=== PATIENT | female | born 1935 | race Caucasian/White ===

== ENCOUNTER 2019-09-16 01:53 | Inpatient (IN) | payer MEDICARE, OTHER ==
--- NOTE | 2019-09-16 03:44 | PDOC.FPRHP ---
- History of Present Illness Chief Complaint: hypotension, lethargy History of Present Illness: 84 yo with PMH of DM, HTN, hypothyroidism transferred from [facility] presents for lethargy and decreased blood pressure. Patient is unable to give her own history due to altered mental status. Her daughter, Arielle Campbell, was contacted via phone. She reports patient was released from rehab 5 days ago (Friday) and was currently at home, with home health. She had been to rehab receiving PT/OT after she was found to have compression fx of T12 and L1 from presumably an unwitnessed fall, and was having difficulty walking. Per daughter's report, she was found to have a UTI while there and was continued on oral vancomycin after discharge, which the daughter understood was for UTI. Daughter reports her mother had been mostly coherent, AOx2 at baseline, prior to yesterday. She had become sleepy and was having difficulty waking up. They tried to feed her yogurt, and she was having difficulty swallowing (choking on her food). They checked in on her again at 6:30 PM, and she appeared "spaced out." Over the course of 30 minutes she became more sleepy, was dozing off, and not as coherent. EMS was called, and she was taken to the hospital in [place]. Daughter reports she had fever at [facility]. UA showed + LE, Bacteria 3+, WBC. She was diagnosed with sepsis 2/2 UTI. She was given 3L NS (total) and 2 g rocephin. Other noteable labs from [facility] include WBC 29, Hgb 8.1, Trop of 4.3, CK of 4.2, BNP of 1418. EKG showed sinus rhythm with LBBB with widened QRS and nonspecific ST changes. Patient was transferred to [facility], where her BP were found to be low , initially systolic in 70s-80s/40s. After her last liter of fluids (total of 3L NS between both hospitals), her most recent MAP was 66. - Allergies/Adverse Reactions Allergies Allergy/AdvReac Type Severity Reaction Status Date / Time Sulfa (Sulfonamide Allergy Verified 09/16/19 03:56 Antibiotics) - History Per records review PMHx: HTN, hypothyroidism, hx of vertigo, compression fractures in her back, glaucoma and macular degeneration; daughter reports no hx of heart failure or heart problems (was seeing a drill grinder in [place], had cardiac clearance for a surgery 2 years ago) PSHx: Appendectomy, hysterectomy, L total knee FHx: IA in father and brother, stroke in mother Social: No tobacco or alcohol use, no drug use - Review of Systems ROS unobtainable: other (per daughter) General: reports: fever/chills, weight/appetite/sleep changes, fatigue Eyes: denies: eye pain, vision changes ENT: denies: nasal congestion, rhinorrhea Respiratory: denies: cough, congestion, shortness of breath Cardiovascular: reports: edema. denies: chest pain, palpitation Gastrointestinal: reports: diarrhea (from laxative), constipation (from pain medications). denies: vomiting, GI bleeding Genitourinary: denies: dysuria, other (hematuria) Skin: reports: rashes (erythema near vaginal area). denies: itching Musculoskeletal: reports: swelling, other (walked with a cane prior to rehab, after rehab walking with a walker about 10-15 feet with PT). denies: arthritis/ arthralgias Neurological: reports: weakness. denies: seizure Psychological: denies: anxiety, depression - Vital signs BP: [102/49] HR: [82] RR: [15] Tmax: [98.8] Pox: [95]% on [3L] Wt: [77.3 kg] - Physical Exam Constitutional: other (patient is lethargic, unable to answer questions reliably. AOx0. Patient awakes to firm touch, falls quickly asleep again.) HEENT: normocephalic and atraumatic, PERRLA, EOMI, conjunctiva clear, no scleral icterus, other (MM dry) Neck: supple, no LAD, no thyromegaly Heart: RRR, normal S1/S2, no murmurs/rubs/gallops, pulses present, other (3+ edema BLE, weak radial pulses and posterior tibial pulses bilat) Lungs: CTAB, no respiratory distress, good air movement, no rales/rhonchi, no wheezing Abdomen: soft, bowel sounds present, other (mild diffuse abdominal tenderness, patient flinches on deep palpation) Musculoskeletal: normal structure, normal tone Skin: other (erythema and excoriations around pubic area, tenting on exam) Psychiatric: other (patient is unable to respond to questions reliably) FMR H&P: Results - Labs Result Diagrams: 09/16/19 04:04 09/16/19 04:04 Lab results: Lactic Acid 1.7 mmol/L (0.5-2.2) 09/16/19 02:39 - EKG Interpretation EKG: Sinus rhythm rate 81 bpm QRS 132 QT/QTc 494/573 LAD LBBB Nonspecific T wave inversions FMR H&P: A/P - Problem List (1) Severe sepsis Current Visit: Yes Status: Acute Code(s): A41.9 - SEPSIS, UNSPECIFIED ORGANISM; R65.20 - SEVERE SEPSIS WITHOUT SEPTIC SHOCK (2) Sepsis secondary to UTI Current Visit: Yes Status: Acute Code(s): A41.9 - SEPSIS, UNSPECIFIED ORGANISM; N39.0 - URINARY TRACT INFECTION, SITE NOT SPECIFIED (3) NSTEMI (non-ST elevated myocardial infarction) Current Visit: Yes Status: Acute Code(s): I21.4 - NON-ST ELEVATION (NSTEMI) MYOCARDIAL INFARCTION (4) LBBB (left bundle branch block) Current Visit: Yes Status: Acute Code(s): I44.7 - LEFT BUNDLE-BRANCH BLOCK, UNSPECIFIED (5) Acute encephalopathy Current Visit: Yes Status: Acute Code(s): G93.40 - ENCEPHALOPATHY, UNSPECIFIED (6) Sepsis with acute hypoxic respiratory failure Current Visit: Yes Status: Acute Code(s): A41.9 - SEPSIS, UNSPECIFIED ORGANISM; R65.20 - SEVERE SEPSIS WITHOUT SEPTIC SHOCK; J96.01 - ACUTE RESPIRATORY FAILURE WITH HYPOXIA (7) Normocytic anemia Current Visit: Yes Status: Acute Code(s): D64.9 - ANEMIA, UNSPECIFIED (8) CHF (congestive heart failure) Current Visit: Yes Status: Acute Code(s): I50.9 - HEART FAILURE, UNSPECIFIED (9) Hyponatremia Current Visit: Yes Status: Acute Code(s): E87.1 - HYPO-OSMOLALITY AND HYPONATREMIA (10) Total bilirubin, elevated Current Visit: Yes Status: Acute Code(s): R17 - UNSPECIFIED JAUNDICE (11) Diabetes mellitus Current Visit: Yes Status: Chronic Code(s): E11.9 - TYPE 2 DIABETES MELLITUS WITHOUT COMPLICATIONS (12) Hypertension Current Visit: Yes Status: Chronic Code(s): I10 - ESSENTIAL (PRIMARY) HYPERTENSION (13) Hypothyroid Current Visit: Yes Status: Chronic Code(s): E03.9 - HYPOTHYROIDISM, UNSPECIFIED (14) History of vertebral compression fracture Current Visit: Yes Status: Chronic Code(s): Z87.81 - PERSONAL HISTORY OF ( HEALED) TRAUMATIC FRACTURE (15) Hx of vertigo Current Visit: Yes Status: Chronic Code(s): Z87.898 - PERSONAL HISTORY OF OTHER SPECIFIED CONDITIONS - Plan #Severe sepsis, possibly 2/2 UTI -Reported fever, WBC 29 -UA showed +leukocytes, LE, Bacteria -U Cx and Blood Cx drawn at [facility] -S/p 3 L NS, lungs clear on exam with 3+ BLE edema -Pt received 2 g rocephin at [facility] -Initial BP was 82/44 Map 56 on arrival, most recent BP 102/49 with MAP 66 -transfer to [facility] for hypotension and closer monitoring -CXR pending -Continue vanc and rocephin #NSTEMI #LBBB, unknown if new or old #Prolonged QT, widened QRS - Trop 4.3, CK 4.2. Stat repeats ordered - 2/2 sepsis (demand) vs cardiac - Repeat EKG looks similar to EKG from [facility] - CXR pending - started therapeutic lovenox, s/p ASA - Will continue to trend troponin - Cardiology consult in the AM #Acute Encephalopathy -possible 2/2 infection vs cardiac -CT brain WO contrast ordered, official read pending #Acute Hypoxic Respiratory failure -Satting 95% on 3L, unknown SpO2% on RA -COVID-19 swab ordered -Hypoxia may be 2/2 fluid overload, CXR pending -ABG shows respiratory alkalosis: pH 7.486, pCO2 27.8, pO2 132.3, bicarb 20.5 #Normocytic Anemia -Hgb 8.1 #probable CHF, unknown type, possibly new onset -home meds: furosemide 20 mg BID, 20 meq KCl qd -lungs BCTA, 3+ edema BLE -BNP 1418 at outside facility, repeat improved to 973 -Echo ordered #Hyponatremia -Na 129 -possibly 2/2 CHF #Elevated Tbili -Tbili 2.5, possibly from demand due to severe sepsis #DM -A1C pending, does not appear to be on medication at home per records #HTN -hold home meds in setting of hypotension #hypothyroid -TSH WNL -levothyroxine 75 mcg qd at home #Possible C dif infection -Pt on oral vancomycinx1 week per chart records -contact [facility] tomorrow for further information #vertigo -hx of vertigo, aware #Hx vertebral compression fractures Code status: No family available, Full code DVT ppx: th lovenox GI ppx: IV protonix PCP: Dr. Salas Baron, [facility] Diet: NPO due to AMS Addendum - Attending - Attending Attestation Date/Time: 09/16/19 0607 I personally evaluated the patient and discussed the management with Dr. [] I agree with the History, Examination, Assessment and Plan documented above with any addition or exceptions noted below. See my dictated H&P for details. Doc# [id number]
[2019-09-16 04:06] LABS: Actual Bicarbonate (HCO3a) 20.5 mEq/L (22-28); Analyzer IN Cardio ER; Base Excess (BEa) -2.6 mEq/L (-2.0 to +3.0); CO2 Tension 27.8 mmHg (35.0-45.0); Calcium, Ionized 1.07 mmol/L (1.12-1.30); Carboxyhemoglobin (COHb) 1.1 gm% (0.0-3.0); Hemoglobin (Hb) 6.4 g/dL (12.0-16.0); O2 Tension (PaO2), arterial 132.3 mmHg (> 60.0); Potassium - ABG Lab 3.55 mmol/L (3.70-5.30); pH, Arterial 7.49 (7.35-7.45)
[2019-09-16 04:10] LABS: Puncture Site LBA
[2019-09-16 04:35] LABS: Hemoglobin 7.2 g/dL (12.0-16.0); Mean Corpuscular HGB CONC 36.1 g/dL (32.0-36.0); Mean Corpuscular Hemoglobin 35.6 pg (27.0-31.0); Mean Corpuscular Volume 98.7 fL (78.0-98.0); Mean Platelet Volume 8.1 fL (7.4-10.4); Platelet Count 245 thou/uL (130-400); RBC Distribution Width 16.5 % (11.5-14.5); Red Blood Cell (RBC) Count 2.02 mill/uL (4.20-5.40); White Blood Cell (WBC) Count 22.5 thou/uL (4.8-10.8)
[2019-09-16 04:37] LABS: ALT (SGPT) 25 U/L (8-55); AST (SGOT) 62 U/L (5-34); Albumin 2.5 g/dL (3.4-4.8); Alkaline Phosphatase 87 U/L (40-110); Anion Gap 12 mmol/L (10-20); BUN (Urea Nitrogen) 21 mg/dL (9.8-20.1); Bilirubin, Total 2.2 mg/dL (0.2-1.2); Calc. Creatinine Clearance 0 mL/min (70-130); Calcium 7.4 mg/dL (7.8-10.44); Carbon Dioxide 18 mmol/L (23-31); Chloride 105 mmol/L (98-107); Estimated GFR-MDRD 72; Globulin 2.6 g/dL (2.4-3.5); Glucose 110 mg/dL (83-110); Magnesium 1.8 mg/dL (1.6-2.6); Potassium 3.7 mmol/L (3.5-5.1); Protein, Total 5.1 g/dL (6.0-8.3); Sodium 131 mmol/L (136-145)
[2019-09-16] MEDS ORDERED: Enoxaparin Sodium 80 MG/0.8 ML SYRINGE ONE (04:50)
[2019-09-16 04:54] LABS: Band 8 % (5-11); Hypochromia SLIGHT = 6-15 cells (100X) (0-5/hpf); Lymphocytes 6 % (21-51); MDiff Complete? YES; Monocytes 2 % (0-10); Neutrophil 84 % (42-75); Platelet Morphology Comment Appears Adequate
[2019-09-16 05:06] LABS: CKMB 6.4 ng/mL (0-6.6)
[2019-09-16] MEDS ORDERED: Ondansetron PF 4 MG/2 ML Vial IVP PRN (05:49)
[2019-09-16 06:26] LABS: Hemoglobin A1c 4.6 % (4.0-6.0)
[2019-09-16] MEDS ORDERED: Prevnar 13-Val Conj/PF 0.5 ML SYRINGE IM ONE (07:00)
--- NOTE | 2019-09-16 07:32 | CT ---
PRELIMINARY REPORT/[facility]/EMERGENCY AFTER HOURS PROCEDURE: EXAM: CT Head Without Intravenous Contrast. CLINICAL HISTORY: ER 12... AMS; Transfer from [facility]. Patient's family reported lethargy and hypotension. TECHNIQUE: Axial computed tomography images of the head/brain without intravenous contrast. COMPARISON: None provided. FINDINGS: BRAIN: There is cerebral atrophy. There is no intracranial hemorrhage. Periventricular hypodensities are present secondary to small vessel ischemic disease. VENTRICLES: No hydrocephalus. ORBITS: The orbits are unremarkable. SINUSES AND MASTOIDS: The paranasal sinuses and mastoid air cells are clear. SOFT TISSUES: No significant facial or scalp soft tissue swelling evident. No radiopaque foreign body is seen. BONES: No acute skull fracture. IMPRESSION: No acute intracranial abnormality. ELECTRONICALLY SIGNED BY: Livier Romero MD September 16, 2019 4:57:46 AM CDT This report is intended for review by the ordering physician only, in accordance of law. If you recei ve this report in error, please call [facility] at [phone]. FINAL REPORT EMERGENCY AFTER HOURS CT BRAIN WITHOUT CONTRAST: Date: 09/16/2019 FINDINGS/IMPRESSION: I agree with the findings and impression given in the preliminary report per [facility] physici an. No evidence of acute intracranial abnormality. POS: MARICRUZA
[2019-09-16] MEDS: Pantoprazole 40 MG VIAL IVP SCH (07:38)
[2019-09-16] MEDS: Enoxaparin Sodium 80 MG/0.8 ML SYRINGE SC SCH ×2 (07:38→20:55)
--- NOTE | 2019-09-16 08:10 | HP ---
CHIEF COMPLAINT: Altered mental status, low blood pressure. HISTORY OF PRESENT ILLNESS: I reviewed all documentation and discussed the care and management of this patient with Dr. Meade. I agree with all the documentation in Dr. Meade's H and P with exception of the following attestation. In summary, Ms. Richardson is a pleasant 84-year-old woman with a past medical history per outside ER records of diabetes, hypertension, hypothyroidism , vertigo. She presented to the ER with a chief complaint of low blood pressure and feeling weak. At the time of my examination, the patient is alert and oriented to person only and unable to provide any useful history. Resident team has acquired contact information for next of kin and is in the process of contacting the patient's family to obtain additional history at this time. In the [facility] ER , the patient was found to be hypotensive with blood pressure of 90/52. Laboratory evidence suggested sepsis secondary to urinary tract infection. The patient also was noted to have an NSTEMI and being in a heart failure exacerbation. However , it is unknown if the patient has a history of coronary artery disease or prior heart failure. The patient is transferred to [facility] for higher level of care. While in the ER, the patient had a lactic acid drawn and was admitted to our service. Prior to transfer, the patient received aspirin, normal saline, and Rocephin. Please see Dr. Meade's note for past medical history, past surgical history, family history, social history, medication list, and allergies. PHYSICAL EXAMINATION: VITAL SIGNS: Blood pressure on my examination was 91/51, pulse 79, respiratory rate 19, the patient is saturating 100% on 2 L nasal cannula. GENERAL: Alert and oriented to person only. No acute distress. Responds somewhat appropriately to questions, but is unable to provide any history. CARDIOVASCULAR: Normal rate, regular rhythm. Pulses are weak throughout. PULMONARY: Clear to auscultation bilaterally. No acute distress. ABDOMEN: Soft, nontender, nondistended EXTREMITIES: Diffuse anasarca noted throughout with 1+ to 2+ pitting edema in the lower extremities, which are tender to palpation. PERTINENT LABORATORY FINDINGS: Sodium 129, BUN 22.1, creatinine 1.0, GFR 64, calcium 7.1, albumin 2.7, total bilirubin 2.5, AST 60, CK-MB 4.20, troponin 4.339. BNP 1400. White blood cell count 29.82, hemoglobin 8.1, platelets 274, neutrophil percentage 89.0%, Urinalysis; cloudy with moderate blood, protein 100, nitrite positive, leukocyte esterase large, bacteria 3+, white blood cells 100-200. EKG showed sinus rhythm with left bundle-branch block of undetermined chronicity, QTc interval of 550, left axis deviation. No overt ST elevations or depressions noted. T-wave inversions noted throughout, again of unknown chronicity. The patient had labs repeated in [place] by my team showed a white blood cell count of 22.5, hemoglobin of 7.2, hematocrit of 19.9, neutrophils of 84. Blood gas drawn , which showed a pH of 7.49, pCO2 of 27.8, pO2 of 132.3, and bicarb of 20.5. Repeat chemistry; sodium 131, creatinine 0.76, calcium 7.4, total bilirubin 2.2, AST 62 , albumin 2.5, troponin 3.581, BNP 973.6, procalcitonin 45.93, TSH 2.4676. Repeat EKG in [place] was consistent with [facility] EKG. IMAGING DATA: Chest x-ray was performed in [facility], but no report is available at this time. Repeat chest x-ray has been ordered. CT of brain without contrast was ordered before initiation of therapeutic Lovenox, official read is still pending, but no overt pathology noted with the exception of diffuse white matter atrophy. No hemorrhage is noted at this time. ASSESSMENT AND PLAN: Ms. Richardson is a pleasant, but very ill 84-year-old female. She was transferred to [facility] in [place] for urosepsis and higher level of care. 1. Severe sepsis secondary to urinary tract infection, rule out COVID. We will continue Rocephin and add vancomycin to her antibiotic regimen. The patient is to be placed in the IMCU for close monitoring. Pressors are not indicated at this time. The patient appears to have responded to fluid resuscitation. However, given this potentially new-onset heart failure and NSTEMI, we will be cautious with additional fluid resuscitation as it could further exacerbate her CHF. Contact precautions until COVID swab has returned. We will initiate pressors if indicated. Blood cultures and urine cultures have been collected in [facility]. We will follow up with these as they result. Residents are attempting to contact family to obtain an official code status due to the patient's altered mental status. We will adjust treatment according to the family's wishes at this time. 2. NSTEMI, unclear if this is related to the patient's severe sepsis or is ischemic. We will load with therapeutic Lovenox at this time and consult Cardiology. 3. New left bundle-branch block. See plan for NSTEMI. 4. Acute congestive heart failure exacerbation with unknown ejection fraction. Unsure if this is acute on chronic versus new onset. We are unable to diurese at this time due to sepsis. We will consider dobutamine drip if blood pressures drop. We will consult Cardiology in the morning for recommendations. Transthoracic echocardiogram has been ordered at this time. 5. Macrocytic anemia. We will order B12, folate, and iron studies. We will type and screen the patient now and continue to trend. Transfuse if hemoglobin drops below 7 or Family indicates history of coronary artery disease. We will transfuse now with a target hemoglobin of 9 for myocardial perfusion purposes. 6. Protein-calorie malnutrition. Albumin is low. We will have Dietary see the patient. 7. Hypocalcemia. The patient is on calcitriol for an unknown reason. Calcium corrects to 8.6. Continue home medications. DISPOSITION: Inpatient IMCU greater than 2 midnights. CODE STATUS: The patient is default full code at this time. As previously mentioned, the resident team is attempting to contact the patient's family to provide update in her status and provide goals of care. TIME SPENT: Approximately 45 minutes of critical care time spent with this patient. Job ID: [id number] MTDD
--- NOTE | 2019-09-16 08:14 | RAD ---
SINGLE VIEW OF THE CHEST: COMPARISON: 09/15/2019. HISTORY: Fell out of bed with left ankle pain. FINDINGS: Single view of the chest shows a normal sized cardiomediastinal silhouette. There is no evidence of c onsolidation, mass, or pleural effusion. The bones are unremarkable. IMPRESSION: No evidence of acute cardiopulmonary disease. POS: EAA
[2019-09-16 08:28] LABS: Critical Call Chem Troponin I RESULT DECREASING
[2019-09-16 08:57] LABS: CKMB 7.5 ng/mL (0-6.6)
[2019-09-16] MEDS ORDERED: Heparin 1,000 UNITS/ML VIAL ONE (10:57)
--- NOTE | 2019-09-16 11:38 | PDOC.BPN ---
- Brief Progress Note 84 yo F presented with fever & AMS; admitted for Hypotension 2/2 urosepsis, NSTEMI, possible new onset HF, encephalopathy likely related to prior diagnosis. COVID r/o. #1) Sepsis 2/2 UTI- Cont. Vanc & Rocephin pending [place] UCx and Bcx #2) Anemia- ordered 2 units PRBC, with recheck H/H 6 hrs #3) AHRF requiring supplemental O2- likely due to anemia in setting of no pulm edema on CXR. Never has been on home O2. Can wean as tolerated #4) Low BPs: MAPs borderline in 60s. Will receive fluids with blood, monitor BPs. May need central line if worsens #5) NSTEMI: Th. Lovenox started. EKG: LBBB& LAD. No prior cardiac hx. Dr. Hamlin consulted, recs appreciated #6) Possible new onset HF: Elevated BNP and peripheral edema. However normal CXR. Daughter states patient saw education program associate two years ago, has no hx of heart problems. Could be from right heart strain. Will obtain TTE pending COVID test. No diuretics at this time d/t low BP. Will need to watch respiratory status/signs for fluid overload #7)Encephalopathy likely 2/2 acute illness: At baseline conversive, A&O x1-2 per daughter Prognosis: Stable, but guarded. Code status: Rediscussed code status with daughter and ([place]) who want her full code until can further discuss. Discussed that she would not likely come off of a ventilator should she require mechanical intubation and discussed quality of life goals. Apparently prior to hospitalization patient had had two year decline in being able to perform her ADLs, needing prompting but able to physically perform. This led her being admitted to rehab. Palliative care team consulted to aid in this decision.
[2019-09-16] MEDS: Vancomycin HCl 1.25 GM in Sodium Chloride 0.9% 250 ML 250 ML IVPB SCH (11:45)
[2019-09-16] MEDS: Hydrocortisone Sod Succ/PF 100 mg/2 ml Vial IVP SCH ×2 (11:46→20:43)
[2019-09-16 11:47] LABS: SARS-CoV-2 MS2 Positive; SARS-CoV-2 N Gene Negative; SARS-CoV-2 S Gene Negative; SARS-CoV-2 orf1ab Negative
--- NOTE | 2019-09-16 12:37 | CON ---
DATE OF CONSULTATION: HISTORY OF PRESENT ILLNESS: An 84-year-old female, was transferred for higher level of care over here. She apparently had a diagnosis of urinary tract infection, was hypotensive and transferred here. She has had altered mental status, unable to get additional information. She is in the ICU at this time. Urine showed 3+ bacteria. She was having difficulty handling her secretions including food. Her BNP was slightly elevated. There was some concern she may have underlying cardiac issues. PAST MEDICAL HISTORY: Hypothyroidism, hypertension, diabetes, vertigo, dementia. PAST SURGICAL HISTORY: Appendectomy, hysterectomy, left total knee. HOME MEDICATIONS: Includes Synthroid 75 mcg, Lasix 20, Coreg 6.25, Lipitor 20. She is on ceftriaxone, Lovenox, vancomycin. ALLERGIES: SULFA. REVIEW OF SYSTEMS: Otherwise, unobtainable. PHYSICAL EXAMINATION: VITAL SIGNS: Temperature 98, pulse 72, blood pressure , pulse 80, respirations 18. CHEST: No wheezing or crackles. CARDIAC: Normal S1, S2. No gallops. LABORATORY DATA: PO2 is 132, pCO2 is on nasal O2. Sodium is 131, creatinine 0.7, bilirubin is 2.2. AST is elevated. BNP is 973, though chest x-ray look relatively unremarkable. Her thyroid function is normal. H and H are 7 and 19, platelet count 245, white count 21696. IMPRESSION: Presumed urosepsis, dementia, anemia, elevated BNP. X-ray does not show congestive heart failure. I gave her a small volume of 5% albumin 250 mL, stress dose of steroids. Otherwise, I would agree with broad-spectrum antibiotics until we get the cultures back. Supportive care. Await results of serology. If this is negative, she may be transferred out of the ICU. Consultation note, 70 minutes, 50% direct patient care. Job ID: [id number]
--- NOTE | 2019-09-16 12:47 | PDOC.BPN ---
- Brief Progress Note COVID negative. Discussed results with both daughters who discussed with father and after talking about code status in detail and what each entailed, they family has decided to make patient do not intubate, cardiac only. I plan to touch base in person with who is coming up to the ICU tomorrow to visit.
[2019-09-16 15:46] LABS: #Basophils 0.2 thou/uL (0.0-0.2); #Eosinphils 0.1 thou/uL (0.0-0.7); #Lymphocytes 1.3 thou/uL (1.20-3.40); #Monocytes 0.7 thou/uL (0.11-0.59); #Neutrophils 15.2 thou/uL (1.40-6.50); %Basophils 1.2 % (0.0-1.0); %Eosinophils 0.6 % (0.0-10.0); %Lymphocytes 7.4 % (21.0-51.0); %Neutrophils 86.7 % (42.0-75.0); Hemoglobin 9.1 g/dL (12.0-16.0); Mean Corpuscular HGB CONC 35.7 g/dL (32.0-36.0); Mean Corpuscular Hemoglobin 34.6 pg (27.0-31.0); Mean Corpuscular Volume 96.8 fL (78.0-98.0); Mean Platelet Volume 8.2 fL (7.4-10.4); Platelet Count 226 thou/uL (130-400); Red Blood Cell (RBC) Count 2.63 mill/uL (4.20-5.40); White Blood Cell (WBC) Count 17.6 thou/uL (4.8-10.8)
--- NOTE | 2019-09-16 18:34 | CON ---
DATE OF CONSULTATION: 09/16/2019 REASON FOR CONSULTATION: Elevated troponins. HISTORY OF PRESENT ILLNESS: Ms. Richardson is an 84-year-old white female, who comes to the hospital for altered mentation. She was seen in the [facility] ER. She was altered. She was hypotensive, found to have what appears to be urinary tract infection, and she was transferred over for higher level of care. On my evaluation, she is still somewhat confused. She is able to tell me where she is, her full name, and she has difficulty with time. She has denies any chest pain, tightness, or pressure or any pain anywhere at this time. She does hurt when I feel for edema on her legs. PAST MEDICAL HISTORY: 1. Hypertension. 2. Hypothyroidism. 3. Vertigo. 4. Compression fractures on back. 5. Glaucoma. 6. Macular degeneration. SURGICAL HISTORY: 1. Appendectomy. 2. Hysterectomy. 3. Left total knee replacement. FAMILY HISTORY: 1. Father of an PA. 2. Brother of PA. 3. Stroke in mother. SOCIAL HISTORY: No alcohol, tobacco, or drugs. REVIEW OF SYSTEMS: Unobtainable as the patient is confused, unable to answer questions well. OUTPATIENT MEDICATIONS: 1. Potassium chloride. 2. Levothyroxine 75 mcg a day. 3. Vancomycin 125 mg p.o. q.6 hours. 4. Furosemide 10 mg a day. 5. Carvedilol 6.25 b.i.d. 6. Miacalcin. 7. Atorvastatin 20 mg at bedtime. ALLERGIES: SULFA DRUGS. PHYSICAL EXAMINATION: VITAL SIGNS: Temperature on my evaluation 96.8, pulse 74, respiratory rate 19, saturating 99% on 2 L nasal cannula, blood pressure 120/67. GENERAL: Somnolent, but easily arousable. Oriented to person and place but not does not do well with time, in no distress. HEENT: Normocephalic, atraumatic. NECK: Supple. LUNGS: Clear. CARDIOVASCULAR: S1 and S2. No S3 or S4. There is a grade 2/6 systolic murmur at the right upper sternal border. ABDOMEN: Soft, positive bowel sounds. EXTREMITIES: No edema. SKIN: Warm and dry. LABORATORY WORK: White count of 22; on admission, hemoglobin 7.2 and after 2 units 9.1; hematocrit of 19; platelet count of 245. ABG was reviewed. Chemistries were reviewed. Initially, sodium was 131, potassium 3.7, chloride 105, carbon dioxide of 18, anion gap of 12, BUN 21, creatinine 0.76, GFR of 72, glucose of 110. Lactic acid was normal. Troponin initially at 3.58, second one at 3.0 with a CK-MB higher at 7.5. BNP was 973. COVID PCR was negative. ASSESSMENT: 1. Xrc-QB-oaaopasir myocardial infarction. 2. Urinary tract infection. 3. Altered mentation. 4. Possible sepsis, resolved after fluids and blood transfusion. 5. Anemia. PLAN: 1. Her hemoglobin has improved after 2 units of blood. 2. No overt bleeding. I see her outpatient medications include p.o. vancomycin. I would be suspicious of her having had some sort of C difficile colitis in the recent past and that what the vancomycin is treating this. This is unclear and I do not think she has had any episodes of diarrhea while she has been here. 3. We will get echocardiogram. 4. She does not seem particularly volume overload. I would recommend against any IV diuresis for now. 5. Echocardiogram is already pending. 6. Elevated troponins are likely type 2 World Health Organization type of myocardial infarction demand ischemia. Thank you for allowing me to participate in the care of this patient. We will continue to follow. Job ID: [id number]
[2019-09-16 20:09] LABS: Hemoglobin 9.4 g/dL (12.0-16.0)
[2019-09-16] MEDS: cefTRIAXone\\ROCEPHIN 1 GM in Sodium Chloride 0.9% 100 ML IVPB SCH (20:51)
[2019-09-17] MEDS: Hydrocortisone Sod Succ/PF 100 mg/2 ml Vial IVP SCH ×4 (00:58→18:01)
[2019-09-17 04:41] LABS: ALT (SGPT) 25 U/L (8-55); AST (SGOT) 47 U/L (5-34); Albumin 2.6 g/dL (3.4-4.8); Alkaline Phosphatase 85 U/L (40-110); Anion Gap 9 mmol/L (10-20); BUN (Urea Nitrogen) 17 mg/dL (9.8-20.1); Calc. Creatinine Clearance 74 mL/min (70-130); Carbon Dioxide 21 mmol/L (23-31); Chloride 107 mmol/L (98-107); Estimated GFR-MDRD 85; Globulin 2.7 g/dL (2.4-3.5); Glucose 168 mg/dL (83-110); Potassium 3.9 mmol/L (3.5-5.1); Protein, Total 5.3 g/dL (6.0-8.3); Sodium 133 mmol/L (136-145)
[2019-09-17 05:44] LABS: Band 14 % (5-11); Hemoglobin 9.2 g/dL (12.0-16.0); Lymphocytes 4 % (21-51); MDiff Complete? YES; Mean Corpuscular HGB CONC 37.9 g/dL (32.0-36.0); Mean Corpuscular Hemoglobin 36.9 pg (27.0-31.0); Mean Corpuscular Volume 97.4 fL (78.0-98.0); Mean Platelet Volume 9.2 fL (7.4-10.4); Metamyelocyte 3 % (0-0); Monocytes 3 % (0-10); Myelocyte 1 % (0-0); Neutrophil 75 % (42-75); Nucleated RBC 1 % (0); Platelet Count 203 thou/uL (130-400); Polychromasia SLIGHT = 2-3 cells (100X) (0-2/hpf); RBC Distribution Width 17.2 % (11.5-14.5); Red Blood Cell (RBC) Count 2.49 mill/uL (4.20-5.40); White Blood Cell (WBC) Count 20.1 thou/uL (4.8-10.8)
--- NOTE | 2019-09-17 08:00 | PDOC.FM ---
- Subjective Subjective: Patient much improved today, conversive, a&o x2. Feels well, denies chest pain, doing well - Objective MAR Reviewed: Yes Vital Signs & Weight: Vital Signs (12 hours) Temp Pulse Ox 09/17/19 07:55 97 09/17/19 07:22 97.3 F L 09/17/19 03:55 96.5 F L 09/17/19 00:24 98 09/16/19 23:52 97.6 F 09/16/19 20:00 100 Weight Weight 76.839 kg Most Recent Monitor Data Heart Rate from ECG 73 NIBP 120/79 NIBP BP-Mean 92 Respiration from ECG 20 SpO2 98 I&O: 09/16/19 09/17/19 09/18/19 06:59 06:59 06:59 Intake Total 2260 Output Total 50 720 Balance -50 1540 Result Diagrams: 09/17/19 03:56 09/17/19 03:56 Phys Exam - Physical Examination Constitutional: NAD HEENT: moist MMs, sclera anicteric Respiratory: no wheezing, clear to auscultation bilateral Cardiovascular: RRR, no significant murmur Gastrointestinal: soft, non-tender Musculoskeletal: no edema Neurological: non-focal, moves all 4 limbs Deviation from normal: a&o x2 Dx/Plan (1) Acute encephalopathy Code(s): G93.40 - ENCEPHALOPATHY, UNSPECIFIED Status: Acute (2) CHF (congestive heart failure) Code(s): I50.9 - HEART FAILURE, UNSPECIFIED Status: Acute Qualifiers: Heart failure chronicity: acute (3) LBBB (left bundle branch block) Code(s): I44.7 - LEFT BUNDLE-BRANCH BLOCK, UNSPECIFIED Status: Acute (4) NSTEMI (non-ST elevated myocardial infarction) Code(s): I21.4 - NON-ST ELEVATION (NSTEMI) MYOCARDIAL INFARCTION Status: Acute (5) Sepsis secondary to UTI Code(s): A41.9 - SEPSIS, UNSPECIFIED ORGANISM; N39.0 - URINARY TRACT INFECTION, SITE NOT SPECIFIED Status: Acute (6) Sepsis with acute hypoxic respiratory failure Code(s): A41.9 - SEPSIS, UNSPECIFIED ORGANISM; R65.20 - SEVERE SEPSIS WITHOUT SEPTIC SHOCK; J96.01 - ACUTE RESPIRATORY FAILURE WITH HYPOXIA Status: Acute (7) Hypertension Code(s): I10 - ESSENTIAL (PRIMARY) HYPERTENSION Status: Chronic - Plan Plan: 84 yo F presented with fever & AMS; admitted for Hypotension 2/2 urosepsis, NSTEMI, possible new onset HF, encephalopathy likely related to prior diagnosis. COVID r/o. #1) Severe Sepsis 2/2 UTI- Cont. Vanc & Rocephin pending [place] UCx and Bcx. BPs improved, procal downtrending. #2) Anemia- s/p 2 PRBC units. Hb 9.2, at goal. #3) AHRF requiring supplemental O2- Resolved. Non hypoxic on RA. Likely from anemia in light of improvement. #4) Low BPs-resolved s/p PRBC. On solucortef, AM cortisol 40 (adequate), pulm on board, recs appreciated. Hold diuretics for now. Monitor. #5) NSTEMI: Th. Lovenox started. EKG: LBBB& LAD. Troponin downtrending. Cards on board, recs appreciated. #6) Possible new onset HF: Elevated BNP and peripheral edema. However normal CXR. TTE pending. Hold diuretics. Cards on board, recs apprecated #7)Encephalopathy likely 2/2 acute illness: At baseline per . #8) Hyponatremia-133, stable. Monitor. #9) Hypoalbuminemia- s/p albumin. Can consider another dose if BPs low. #10) Suspected dementia- SLUMS score 6. Brain CT with cerebral atrophy. Has f/u appt with neurologist outpatient #11) Physical deconditioning- has PT set up, declining rehab #12) Vertebral compression fx- has f/u appt with [facility] Discussed with daughter and today. Addendum - Attending - Attending Attestation Date/Time: 09/17/19 6800 I personally evaluated the patient and discussed the management with Dr. Ramirez I agree with the History, Examination, Assessment and Plan documented above with any addition or exceptions noted below. 84 yo F admitted for sepsis 2/2 UTI as well as NSTEMI. Hgb improved after 2U PRBCs will continue to monitor at this time. Continue solu-cortef and prednisone. Echo pending for evaluation for new-onset CHF. Appreciate Cardiology , Pulmonology recs. Patient would like to go home with in place of inpatient rehab once she is stable for discharge.
[2019-09-17] MEDS: Enoxaparin Sodium 80 MG/0.8 ML SYRINGE SC SCH ×2 (09:08→20:29)
[2019-09-17] MEDS: Vancomycin HCl 1.25 GM in Sodium Chloride 0.9% 250 ML 250 ML IVPB SCH (09:08)
[2019-09-17] MEDS: Pantoprazole 40 MG VIAL IVP SCH (09:09)
--- NOTE | 2019-09-17 09:19 | PRG ---
DATE OF SERVICE: 09/17/2019 SUBJECTIVE: This morning, she is much more awake, alert, responsive, less encephalopathic. OBJECTIVE: VITAL SIGNS: Temperature 97, pulse 97, saturations 96% on room air, blood pressure 120/79. CHEST: Decreased breath sounds. No wheezing. CARDIAC: Normal S1 and S2. No gallops. ABDOMEN: No masses. LABORATORY DATA: Her cortisol level was elevated at 40. ASSESSMENT AND PLAN: 1. Urosepsis. 2. Hypertension. 3. Encephalopathy. 4. Electrolyte imbalance. 5. Persistent leukocytosis. I would deescalate the antibiotics. She appears to be stable enough to be transferred to a medical floor. Eventually placement. We will follow. Job ID: [id number]
[2019-09-17] MEDS ORDERED: Acetaminophen 325 MG TAB PO PRN (12:14)
[2019-09-17] MEDS ORDERED: HumaLOG 300 UNITS/3 ML VIAL SC PRN ×2 (12:16)
[2019-09-17] MEDS ORDERED: Dextrose 50% Abboject 50 ML SYRINGE SLOW IVP PRN (12:16)
[2019-09-17] MEDS ORDERED: Dextrose 5% in Water 1,000 ML IV PRN (12:16)
[2019-09-17] MEDS ORDERED: Gabapentin 300 MG CAP PO ONE (13:22)
[2019-09-17] MEDS ORDERED: Docusate 100 MG CAP PO PRN (13:37)
--- NOTE | 2019-09-17 14:04 | PDOC.CPN ---
- Subjective Date: 09/17/19 Time: 14:01 Interval history: She is much better, much more awake and per daughters report much closer to baseline. - Review of Systems ROS unobtainable: due to mental status - Objective Allergies/Adverse Reactions: Allergies Allergy/AdvReac Type Severity Reaction Status Date / Time Sulfa (Sulfonamide Allergy Verified 09/16/19 03:56 Antibiotics) Visit Medications: Current Medications Acetaminophen (Tylenol) 650 mg PO Q6H PRN PRN Reason: Pain Atorvastatin Calcium (Lipitor) 20 mg PO DAILY [facility] Calcitonin [place] (Miacalcin) 0 sprays EA NARE DAILY [facility] Dextrose/Water (Dextrose 50%) 25 gm SLOW IVP PRN PRN PRN Reason: Hypoglycemia Docusate Sodium (Colace) 100 mg PO BIDPRN PRN PRN Reason: Constipation Enoxaparin Sodium (Lovenox) 80 mg SC BID [facility] Last Admin: 09/17/19 09:08 Dose: 80 mg Gabapentin (Neurontin) 300 mg PO BID [facility] Glucagon (Glucagon) 1 mg IM PRN PRN PRN Reason: Hypoglycemia Hydrocortisone Sodium Succinate (Solu-Cortef) 50 mg IVP Q6HR [facility] Stop: 09/23/19 12:01 Last Admin: 09/17/19 11:46 Dose: 50 mg Ceftriaxone Sodium 1 gm/ (Sodium Chloride) 100 mls @ 200 mls/hr IVPB Q24HR [facility] Last Admin: 09/16/19 20:51 Dose: 100 mls Vancomycin HCl 1.25 gm/ Sodium (Chloride) 250 mls @ 166.67 mls/hr IVPB Q24HR [facility] Last Admin: 09/17/19 09:08 Dose: 250 mls Dextrose/Water (D5w) 1,000 mls @ 0 mls/hr IV .Q0M PRN PRN Reason: Hypoglycemia Insulin Human Lispro (Humalog) 0 units SC .MILD SLIDING SCALE PRN PRN Reason: Mild Correctional Scale Insulin Human Lispro (Humalog) 0 units SC .BEDTIME SLIDING SC PRN PRN Reason: Bedtime Correctional Scale Levothyroxine Sodium (Synthroid) 75 mcg PO DAILY [facility] Miscellaneous Medication (Pharmacy To Dose) 1 each IVPB ASDIR [facility] Ondansetron HCl (Zofran) 4 mg IVP Q6H PRN PRN Reason: Nausea/Vomiting Pantoprazole Sodium (Protonix) 40 mg IVP DAILY [facility] Last Admin: 09/17/19 09:09 Dose: 40 mg Sodium Chloride (Flush - Normal Saline) 10 ml IVF Q12HR [place] Last Admin: 09/17/19 09:08 Dose: 10 ml Sodium Chloride (Flush - Normal Saline) 10 ml IVF PRN PRN PRN Reason: Saline Flush Last Admin: 09/17/19 06:29 Dose: 10 ml Vital Signs & Weight: Vital Signs Temp Pulse BP Pulse Ox 09/17/19 11:08 97.1 F L 09/17/19 10:15 72 122/75 09/17/19 08:00 98 09/17/19 07:55 97 09/17/19 07:22 97.3 F L 09/17/19 03:55 96.5 F L Admit Weight 166 lb 14.239 oz Weight 169 lb 6.4 oz - Physical Exam General: no apparent distress HEENT: mucus membranes moist Neck: supple neck Cardiac: regular rate and rhythm Lungs: normal breath sounds Neuro: no lateralizing findings Abdomen: active bowel sounds Extremities: no edema Skin: clear Musculoskeletal: no pain - Labs Result Diagrams: 09/17/19 03:56 09/17/19 03:56 Troponin/CKMB CK-MB (CK-2) 7.5 ng/mL (0-6.6) H* 09/16/19 07:34 Troponin I 3.007 ng/mL (< 0.028) H* 09/16/19 07:34
--- NOTE | 2019-09-17 15:33 | EKG ---
Test Reason : Blood Pressure : / mmHG Vent. Rate : 081 BPM Atrial Rate : 081 BPM P-R Int : 156 ms QRS Dur : 132 ms QT Int : 494 ms P-R-T Axes : 053 -43 159 degrees QTc Int : 573 ms Normal sinus rhythm Left axis deviation Left bundle branch block No STEMI Abnormal ECG Confirmed by THAIS DENNIS M.D. ([id number]), design editor JULIETA BIRMINGHAM ([id number] on 09/17/2019 3:33:29 PM Referred By: Confirmed By:THAIS DENNIS M.D.
--- NOTE | 2019-09-17 16:33 | PQF ---
DATE: 09-17-19 ATTN: DR. LOUIE LAO / DR. IRENE CELIS Please exercise your independent, professional judgment in responding to the clarification form. Clinical indicators are provided on the bottom of this form for your review Please check appropriate box(s): [ ] I (concur) with the Nurse Assessment findings as stated below. [ x ] Pressure Ulcer: [ ] Location: ____Bilateral legs & Gluteus POA: [ x ] Yes [ ] No[ ] Unable to determine Stage (I to IV): _Stage 1 on leg & Stage 3 on Gluteus____ (Left Right Bilateral__X___ N/A ) [ ] No pressure ulcer diagnosis [ ] Deep tissue injury [ ] Other diagnosis [ ] Unable to determine In addition, please specify: Present on Admission (POA): [ x ] Yes [ ] No [ ] Unable to determine For continuity of documentation, please document condition throughout progress notes and discharge summary. Thank You. CLINICAL INDICATORS - SIGNS / SYMPTOMS / LABS / RSULTS AND LOCATION IN MR: NURSE ASSESSMENT 09-16-19: PRESSURE ULCER L BUTTOCK STAGE 3 RISK FACTORS / RSULTS AND LOCATION IN MR: H&P 09-16-19: SEVERE SEPSIS, NSTEMI, ACUTE HYPOXIC RESPIRATORY FAILURE, ACUTE ENCEPHALOPATHY, PROTEIN CALORIE MALNUTRITION TREATMENTS / RSULTS AND LOCATION IN MR: NURSE ASSESSMENT 09-16-19: PRESSURE POINTS OFFLOADED, WAFFLE MATTRESS PLACED ON , MERIPLEX DRESSING PRESSURE ULCER STAGES Stage I: Erythema Stage II: Partial thickness Stage III: Full thickness Stage IV: Necrosis to muscle/bone (This form is maintained as a part of the permanent medical record) 2014 [employer]. All Rights Reserved [email or web address] [employer] [facility]
[2019-09-17] MEDS: Gabapentin 300 MG CAP PO SCH (20:29)
[2019-09-17] MEDS: cefTRIAXone\\ROCEPHIN 1 GM in Sodium Chloride 0.9% 100 ML IVPB SCH (20:29)
[2019-09-17] MEDS ORDERED: Atorvastatin Calcium 20 MG TAB PO SCH (21:00)
[2019-09-18] MEDS: Hydrocortisone Sod Succ/PF 100 mg/2 ml Vial IVP SCH ×5 (00:24→23:06)
[2019-09-18 04:30] LABS: ALT (SGPT) 26 U/L (8-55); AST (SGOT) 28 U/L (5-34); Albumin 2.7 g/dL (3.4-4.8); Alkaline Phosphatase 88 U/L (40-110); Anion Gap 12 mmol/L (10-20); BUN (Urea Nitrogen) 15 mg/dL (9.8-20.1); Bilirubin, Total 0.6 mg/dL (0.2-1.2); Calc. Creatinine Clearance 79 mL/min (70-130); Carbon Dioxide 19 mmol/L (23-31); Chloride 105 mmol/L (98-107); Estimated GFR-MDRD 90; Globulin 2.6 g/dL (2.4-3.5); Glucose 187 mg/dL (83-110); Potassium 3.9 mmol/L (3.5-5.1); Protein, Total 5.3 g/dL (6.0-8.3); Sodium 132 mmol/L (136-145)
--- NOTE | 2019-09-18 07:25 | PDOC.FM ---
- Subjective Subjective: NAEO. Patient denies CP. Feels better she states. No concerns - Objective Vital Signs & Weight: Vital Signs (12 hours) Temp Pulse Resp BP Pulse Ox 09/18/19 03:39 97.4 F L 76 18 134/68 99 09/18/19 02:02 98 09/17/19 23:20 86 125/68 09/17/19 20:30 97.6 F 80 16 119/58 L 98 09/17/19 20:25 98 Weight Admit Weight 75.7 kg Weight 77.02 kg Most Recent Monitor Data Heart Rate from ECG 77 NIBP 113/66 NIBP BP-Mean 81 Respiration from ECG 19 SpO2 98 I&O: 09/17/19 09/18/19 09/19/19 06:59 06:59 06:59 Intake Total 2260 1830 Output Total 720 800 Balance 1540 1030 Result Diagrams: 09/18/19 03:38 09/18/19 03:38 Phys Exam - Physical Examination Constitutional: NAD HEENT: PERRLA, moist MMs Respiratory: no wheezing, clear to auscultation bilateral Cardiovascular: RRR, no significant murmur Gastrointestinal: soft, non-tender Musculoskeletal: no edema Neurological: non-focal, moves all 4 limbs Deviation from normal: a&o x2, poor short term recall Dx/Plan (1) Acute encephalopathy Code(s): G93.40 - ENCEPHALOPATHY, UNSPECIFIED Status: Acute (2) CHF (congestive heart failure) Code(s): I50.9 - HEART FAILURE, UNSPECIFIED Status: Acute Qualifiers: Heart failure chronicity: acute (3) LBBB (left bundle branch block) Code(s): I44.7 - LEFT BUNDLE-BRANCH BLOCK, UNSPECIFIED Status: Acute (4) NSTEMI (non-ST elevated myocardial infarction) Code(s): I21.4 - NON-ST ELEVATION (NSTEMI) MYOCARDIAL INFARCTION Status: Acute (5) Sepsis secondary to UTI Code(s): A41.9 - SEPSIS, UNSPECIFIED ORGANISM; N39.0 - URINARY TRACT INFECTION, SITE NOT SPECIFIED Status: Acute (6) Sepsis with acute hypoxic respiratory failure Code(s): A41.9 - SEPSIS, UNSPECIFIED ORGANISM; R65.20 - SEVERE SEPSIS WITHOUT SEPTIC SHOCK; J96.01 - ACUTE RESPIRATORY FAILURE WITH HYPOXIA Status: Acute (7) Hypertension Code(s): I10 - ESSENTIAL (PRIMARY) HYPERTENSION Status: Chronic - Plan Plan: 84 yo F presented with fever & AMS; admitted for Hypotension 2/2 urosepsis, NSTEMI, possible new onset HF, encephalopathy likely related to prior diagnosis. COVID r/o. #1) Severe Sepsis 2/2 UTI- Cont. Vanc & Rocephin pending [place] UCx and Bcx. BPs improved, procal downtrending. #2) Anemia- s/p 2 PRBC units. Hb 9.2, at goal. #3) AHRF requiring supplemental O2- Resolved. Non hypoxic on RA. Likely from anemia in light of improvement. #4) Low BPs-resolved s/p PRBC. On solucortef, AM cortisol 40 (adequate), pulm on board, recs appreciated. Hold diuretics for now. Monitor. #5) NSTEMI: Th. Lovenox started. EKG: LBBB& LAD. Troponin downtrending. Cards on board, recs appreciated. #6) Possible new onset HF: Elevated BNP and peripheral edema. However normal CXR. TTE pending. Hold diuretics. Cards on board, recs appreciated #7) Encephalopathy likely 2/2 acute illness: At baseline per . #8) Hyponatremia-132, stable. Poor solute intake vs. transient SIADH. Get serum osm. Monitor. #9) Hypoalbuminemia- s/p albumin. Likely from poor intake. Added ensure, dietary on board. #10) Suspected dementia- SLUMS score 6. Brain CT with cerebral atrophy. Has f/u appt with neurologist outpatient #11) Physical deconditioning- has PT set up, declining rehab #12) Vertebral compression fx- has f/u appt with [facility]. Resume calcitonin. Tylenol & gabapentin for pain control. #13) Leukocytosis: Still elevated at 20, but other inflamm makers downtrending. Ordered peripheral blood smear. Discussed updates with daughter today. Addendum - Attending - Attending Attestation Date/Time: 09/18/19 1013 I personally evaluated the patient and discussed the management with Dr. Ramirez I agree with the History, Examination, Assessment and Plan documented above with any addition or exceptions noted below. 84 yo F admitted for sepsis 2/2 UTI as well as NSTEMI. Hgb improved after 2U PRBCs. Blood and urine cx showed gram negative rods, will stop vancomycin and follow up on cultures. Still on therapeutic lovenox, awaiting echo results. ST depression on tele, ordered EKG for follow up. Continue solu-cortef and prednisone. Awaiting results of echo for guidance on further cardiology workup for NSTEMI, suspect type II.
[2019-09-18 08:35] LABS: Band 6 % (5-11); Hemoglobin 9.8 g/dL (12.0-16.0); Lymphocytes 14 % (21-51); MDiff Complete? YES; Mean Corpuscular HGB CONC 35.6 g/dL (32.0-36.0); Mean Corpuscular Hemoglobin 35.7 pg (27.0-31.0); Mean Platelet Volume 10.1 fL (7.4-10.4); Monocytes 5 % (0-10); Neutrophil 75 % (42-75); Nucleated RBC 4 % (0); Platelet Count 203 thou/uL (130-400); RBC Distribution Width 17.1 % (11.5-14.5); Red Blood Cell (RBC) Count 2.74 mill/uL (4.20-5.40); White Blood Cell (WBC) Count 20.3 thou/uL (4.8-10.8)
[2019-09-18] MEDS ORDERED: Atorvastatin Calcium 20 MG TAB PO SCH (09:00)
[2019-09-18] MEDS: Atorvastatin Calcium 20 MG TAB PO SCH (09:21)
[2019-09-18] MEDS: Enoxaparin Sodium 80 MG/0.8 ML SYRINGE SC SCH ×2 (09:22→20:24)
[2019-09-18] MEDS: Calcitonin,Salmon,Synthetic 200 Units 3.7 ML PUMP EA NARE SCH (09:22)
--- NOTE | 2019-09-18 09:22 | PDOC.BPN ---
- Brief Progress Note Discussed with [facility] and [place] 1/2 growing gram - rods and same with UCx. Prelim read. Will fax results. Await finalized reads with sensitivities and specificities
[2019-09-18] MEDS: Pantoprazole 40 MG VIAL IVP SCH (09:23)
[2019-09-18] MEDS: Levothyroxine Sodium 75 MCG TAB PO SCH (09:23)
[2019-09-18] MEDS: Gabapentin 300 MG CAP PO SCH ×2 (09:23→20:24)
[2019-09-18 09:58] LABS: Vancomycin, Trough 5.9 ug/mL
[2019-09-18] MEDS ORDERED: Vancomycin 1 GM in Premix Bag 1 BAG IVPB SCH (11:00)
[2019-09-18] MEDS: Vancomycin HCl 1.25 GM in Sodium Chloride 0.9% 250 ML 250 ML IVPB SCH (11:25)
[2019-09-18 11:59] LABS: Anisocytosis SLIGHT = 6-15 cells (100X) (0-5/hpf); Band 13 % (5-11); Hemoglobin 10.2 g/dL (12.0-16.0); Lymphocytes 9 % (21-51); MDiff Complete? YES; Mean Corpuscular HGB CONC 35.4 g/dL (32.0-36.0); Mean Corpuscular Hemoglobin 34.6 pg (27.0-31.0); Mean Corpuscular Volume 97.9 fL (78.0-98.0); Mean Platelet Volume 9.5 fL (7.4-10.4); Metamyelocyte 2 % (0-0); Monocytes 6 % (0-10); Neutrophil 70 % (42-75); Nucleated RBC 4 % (0); Platelet Clumps SLIGHT; Platelet Count 206 thou/uL (130-400); Platelet Morphology Comment Appears Adequate; Polychromasia SLIGHT = 2-3 cells (100X) (0-2/hpf); RBC Distribution Width 16.2 % (11.5-14.5); Red Blood Cell (RBC) Count 2.94 mill/uL (4.20-5.40); White Blood Cell (WBC) Count 21.1 thou/uL (4.8-10.8)
--- NOTE | 2019-09-18 13:02 | PRG ---
DATE OF SERVICE: SUBJECTIVE: Amarilys Richardson has no complaints. she plans on drinking several cans of Ensure today. OBJECTIVE: VITAL SIGNS: She is afebrile, heart rate is 79, respiratory rate is 18, oximetry is 98% on room air, and blood pressure is 128/67. LUNGS: Clear anteriorly. HEART: Regular rhythm. ABDOMEN: Soft. EXTREMITIES: Without edema. IMPRESSION: Status post urinary tract sepsis. There are no cultures here to review. Overall, she appears to be stable. Other problems include hypothyroidism, history of hypertension, diabetes, and some degree of dementia. Overall, she is stable. She probably could be considered for rehab. Job ID: [id number]
--- NOTE | 2019-09-18 14:19 | PDOC.CPN ---
- Subjective Date: 09/18/19 Time: 12:40 Interval history: No overnight events. Feeling better overall. Denies CP. SOB improved. - Review of Systems General: denies: fever/chills, weight/appetite/sleep changes, night sweats, fatigue Respiratory: reports: shortness of breath Cardiovascular: denies: chest pain, palpitation, edema, paroxysmal nocturnal dyspnea, orthopnea Gastrointestinal: denies: nausea, vomiting, diarrhea, constipation, abd pain, GI bleeding Musculoskeletal: denies: pain, tenderness, stiffness, swelling, arthritis/ arthralgias Neurological: denies: numbness, syncope, seizure, weakness - Objective Allergies/Adverse Reactions: Allergies Allergy/AdvReac Type Severity Reaction Status Date / Time Sulfa (Sulfonamide Allergy Verified 09/16/19 03:56 Antibiotics) Visit Medications: Current Medications Acetaminophen (Tylenol) 650 mg PO Q6H PRN PRN Reason: Pain Atorvastatin Calcium (Lipitor) 40 mg PO DAILY [facility] Last Admin: 09/18/19 09:21 Dose: 40 mg Calcitonin [place] (Miacalcin) 0 sprays EA NARE DAILY [facility] Last Admin: 09/18/19 09:22 Dose: 1 spr Dextrose/Water (Dextrose 50%) 25 gm SLOW IVP PRN PRN PRN Reason: Hypoglycemia Docusate Sodium (Colace) 100 mg PO BIDPRN PRN PRN Reason: Constipation Enoxaparin Sodium (Lovenox) 80 mg SC BID [facility] Last Admin: 09/18/19 09:22 Dose: 80 mg Gabapentin (Neurontin) 300 mg PO BID [facility] Last Admin: 09/18/19 09:23 Dose: 300 mg Glucagon (Glucagon) 1 mg IM PRN PRN PRN Reason: Hypoglycemia Hydrocortisone Sodium Succinate (Solu-Cortef) 50 mg IVP Q6HR [facility] Stop: 09/23/19 12:01 Last Admin: 09/18/19 12:10 Dose: 50 mg Ceftriaxone Sodium 1 gm/ (Sodium Chloride) 100 mls @ 200 mls/hr IVPB Q24HR [facility] Last Admin: 09/17/19 20:29 Dose: 100 mls Dextrose/Water (D5w) 1,000 mls @ 0 mls/hr IV .Q0M PRN PRN Reason: Hypoglycemia Insulin Human Lispro (Humalog) 0 units SC .MILD SLIDING SCALE PRN PRN Reason: Mild Correctional Scale Last Admin: 09/18/19 05:55 Dose: 2 unit Insulin Human Lispro (Humalog) 0 units SC .BEDTIME SLIDING SC PRN PRN Reason: Bedtime Correctional Scale Levothyroxine Sodium (Synthroid) 75 mcg PO DAILY [facility] Last Admin: 09/18/19 09:23 Dose: 75 mcg Ondansetron HCl (Zofran) 4 mg IVP Q6H PRN PRN Reason: Nausea/Vomiting Pantoprazole Sodium (Protonix) 40 mg IVP DAILY [facility] Last Admin: 09/18/19 09:23 Dose: 40 mg Sodium Chloride (Flush - Normal Saline) 10 ml IVF Q12HR [facility] Last Admin: 09/18/19 09:23 Dose: 10 ml Sodium Chloride (Flush - Normal Saline) 10 ml IVF PRN PRN PRN Reason: Saline Flush Last Admin: 09/17/19 06:29 Dose: 10 ml Vital Signs & Weight: Vital Signs Temp Pulse Pulse Pulse Resp BP BP 09/18/19 12:01 98.1 F 79 18 09/18/19 10:35 73 77 125/63 133/73 09/18/19 07:22 97.9 F 75 16 09/18/19 03:39 97.4 F L 76 18 BP Pulse Ox 09/18/19 12:01 128/67 98 09/18/19 10:35 09/18/19 07:22 132/77 100 09/18/19 03:39 134/68 99 Admit Weight 166 lb 14.239 oz Weight 169 lb 12.8 oz - Physical Exam General: appears well, no apparent distress HEENT: mucus membranes moist Neck: supple neck Cardiac: regular rate and rhythm Lungs: normal breath sounds Neuro: grossly intact Abdomen: soft Extremities: 1+ LE edema Musculoskeletal: no pain - Labs Result Diagrams: 09/18/19 09:33 09/18/19 03:38 Troponin/CKMB CK-MB (CK-2) 7.5 ng/mL (0-6.6) H* 09/16/19 07:34 Troponin I 3.007 ng/mL (< 0.028) H* 09/16/19 07:34 - Assessment/Plan Assessment/Plan: 1. NSTEMI 2. UTI and sepsis 3. AMS 4. Hypotension secondary to sepsis 5. Anemia Overall improved. Continue Abx. Await ECHO. Will resume low dose Coreg now that BP has stabilized. RG-Pt seen and examined; agree with the above assessment Pt with low EF [place] in hospital for several days Pt may need lifevest prior to DC If here several days, recommend repeat echo. No previous h/o CM and may be related to sepsis Duiscussed with pt
[2019-09-18] MEDS: Carvedilol 3.125 MG TAB PO SCH (17:54)
[2019-09-18] MEDS: cefTRIAXone\\ROCEPHIN 1 GM in Sodium Chloride 0.9% 100 ML IVPB SCH (20:23)
[2019-09-19 05:00] LABS: ALT (SGPT) 33 U/L (8-55); AST (SGOT) 29 U/L (5-34); Albumin 2.6 g/dL (3.4-4.8); Alkaline Phosphatase 84 U/L (40-110); Anion Gap 11 mmol/L (10-20); BUN (Urea Nitrogen) 15 mg/dL (9.8-20.1); Bilirubin, Total 0.8 mg/dL (0.2-1.2); Calc. Creatinine Clearance 80 mL/min (70-130); Carbon Dioxide 25 mmol/L (23-31); Cardiac Risk 3.6 (Less than 4.5); Chloride 103 mmol/L (98-107); Cholesterol 102 mg/dl (< 200 Desired); Estimated GFR-MDRD Greater than 90; Globulin 2.6 g/dL (2.4-3.5); Glucose 135 mg/dL (83-110); HDL Cholesterol 28 mg/dL (>60 Neg Risk); LDL Cholesterol, Calculated 59 mg/dL; Potassium 3.3 mmol/L (3.5-5.1); Protein, Total 5.2 g/dL (6.0-8.3); Sodium 136 mmol/L (136-145); Triglycerides 75 mg/dL (Less than 150)
[2019-09-19] MEDS: Hydrocortisone Sod Succ/PF 100 mg/2 ml Vial IVP SCH ×4 (05:44→23:39)
[2019-09-19 06:02] LABS: Hemoglobin 10.1 g/dL (12.0-16.0); Mean Corpuscular Hemoglobin 33.4 pg (27.0-31.0); Mean Corpuscular Volume 98.1 fL (78.0-98.0); Mean Platelet Volume 9.5 fL (7.4-10.4); Platelet Count 211 thou/uL (130-400); RBC Distribution Width 15.8 % (11.5-14.5); Red Blood Cell (RBC) Count 3.03 mill/uL (4.20-5.40)
[2019-09-19 06:11] LABS: Band 10 % (5-11); Lymphocytes 6 % (21-51); MDiff Complete? YES; Metamyelocyte 1 % (0-0); Monocytes 5 % (0-10); Myelocyte 4 % (0-0); Neutrophil 74 % (42-75); White Blood Cell (WBC) Count 22.5 thou/uL (4.8-10.8)
--- NOTE | 2019-09-19 06:59 | PDOC.FM ---
- Subjective Subjective: NAEO. One loose BM but non watery, Patient with no complaints, feels much better - Objective Vital Signs & Weight: Vital Signs (12 hours) Temp Pulse Resp BP Pulse Ox 09/19/19 03:51 98.5 F 76 18 130/65 99 09/18/19 20:00 98 09/18/19 19:19 97.8 F 85 16 124/69 99 Weight Admit Weight 75.7 kg Weight 76.748 kg Most Recent Monitor Data Heart Rate from ECG 77 NIBP 113/66 NIBP BP-Mean 81 Respiration from ECG 19 SpO2 98 I&O: 09/17/19 09/18/19 09/19/19 06:59 06:59 06:59 Intake Total 2260 1830 720 Output Total 182 957 9358 Balance 1540 1030 -839 Result Diagrams: 09/19/19 04:30 09/19/19 04:30 Phys Exam - Physical Examination Constitutional: NAD HEENT: PERRLA, moist MMs Neck: full ROM Cardiovascular: RRR, no significant murmur Gastrointestinal: soft, non-tender Musculoskeletal: no edema Neurological: non-focal, moves all 4 limbs Deviation from normal: a&o 2 Dx/Plan (1) Acute encephalopathy Code(s): G93.40 - ENCEPHALOPATHY, UNSPECIFIED Status: Acute (2) CHF (congestive heart failure) Code(s): I50.9 - HEART FAILURE, UNSPECIFIED Status: Acute Qualifiers: Heart failure chronicity: acute (3) LBBB (left bundle branch block) Code(s): I44.7 - LEFT BUNDLE-BRANCH BLOCK, UNSPECIFIED Status: Acute (4) NSTEMI (non-ST elevated myocardial infarction) Code(s): I21.4 - NON-ST ELEVATION (NSTEMI) MYOCARDIAL INFARCTION Status: Acute (5) Sepsis secondary to UTI Code(s): A41.9 - SEPSIS, UNSPECIFIED ORGANISM; N39.0 - URINARY TRACT INFECTION, SITE NOT SPECIFIED Status: Acute (6) Sepsis with acute hypoxic respiratory failure Code(s): A41.9 - SEPSIS, UNSPECIFIED ORGANISM; R65.20 - SEVERE SEPSIS WITHOUT SEPTIC SHOCK; J96.01 - ACUTE RESPIRATORY FAILURE WITH HYPOXIA Status: Acute (7) Hypertension Code(s): I10 - ESSENTIAL (PRIMARY) HYPERTENSION Status: Chronic - Plan Plan: 84 yo F presented with fever & AMS; admitted for Hypotension 2/2 urosepsis, NSTEMI, possible new onset HF, encephalopathy likely related to prior diagnosis. COVID r/o. #1) Severe Sepsis 2/2 ESBL UTI with gram neg. bacteremia- Cont.rocephin, discuss abx change to cover ESBL- pending finalized [place] UCx and Bcx. BPs improved, procal downtrending, clinically improving #2) Anemia- s/p 2 PRBC units. Hb 9.2, at goal. #3) AHRF requiring supplemental O2- Resolved. Non hypoxic on RA. Likely from anemia in light of improvement. #4) Low BPs-resolved s/p PRBC. On solucortef, AM cortisol 40 (adequate), pulm on board, recs appreciated. Hold diuretics for now. Monitor. #5) NSTEMI: Th. Lovenox started. EKG: LBBB& LAD. Troponin downtrending. Cards on board, recs appreciated. #6) New onset CHFrEF: Elevated BNP. TTE with EF 30-35%. Cards on board, recs appreciated. #7) Encephalopathy likely 2/2 acute illness/dementia: At baseline per . #8) Hyponatremia-Resolved. #9) Hypoalbuminemia- s/p albumin. Likely from poor intake. Added ensure, dietary on board. #10) Suspected dementia- SLUMS score 6. Brain CT with cerebral atrophy. Has f/u appt with neurologist outpatient #11) Physical deconditioning- has PT set up. Pending hospital course may need rescreen. #12) Vertebral compression fx- has f/u appt with [facility]. Resume calcitonin. Tylenol & gabapentin for pain control. Rx OP rheum f/u. #13) Leukocytosis: Still elevated at 20, but other inflamm makers downtrending. Ordered peripheral blood smear. #14) Urinary retention: Continue voiding trial. Intermittent straight cath of needed. Work with PT/OT #15) Hx of tx of C.Diff- no test results at rehab, empirically treated with PO vanc for ~5days. One loose BM. If continues to have will obtain CDiff toxin analysis. No imodium. Discussed updates with daughter today. Addendum - Attending - Attending Attestation Date/Time: 09/19/19 0694 I personally evaluated the patient and discussed the management with Dr. Ramirez I agree with the History, Examination, Assessment and Plan documented above with any addition or exceptions noted below. 84 yo F admitted for sepsis 2/2 UTI as well as NSTEMI. Hgb improved after 2U PRBCs. Urine cultures resulted today and showed ESBL e. coli. Will speak to Dr. Barnhart about starting Meropenem. Still on therapeutic lovenox. Continue solu- cortef and prednisone. Echo shows EF 35%. Overall patient appears to be improving. Appreciate Cardiology recs, may ultimately need lifevest. Possible catheterization tomorrow.
[2019-09-19] MEDS ORDERED: Potassium Chloride 20 MEQ TAB PO SCH (07:00)
[2019-09-19] MEDS: Atorvastatin Calcium 20 MG TAB PO SCH (08:43)
[2019-09-19] MEDS: Enoxaparin Sodium 80 MG/0.8 ML SYRINGE SC SCH ×2 (08:43→20:54)
[2019-09-19] MEDS: Pantoprazole 40 MG VIAL IVP SCH (08:43)
[2019-09-19] MEDS: Carvedilol 3.125 MG TAB PO SCH (08:43)
[2019-09-19] MEDS: Gabapentin 300 MG CAP PO SCH ×2 (08:43→20:54)
[2019-09-19] MEDS: Levothyroxine Sodium 75 MCG TAB PO SCH (08:43)
[2019-09-19] MEDS: Calcitonin,Salmon,Synthetic 200 Units 3.7 ML PUMP EA NARE SCH (08:44)
[2019-09-19] MEDS ORDERED: Meropenem 1 GM in Sodium Chloride 0.9% 100 ML IVPB SCH (12:00)
[2019-09-19] MEDS: Piperacillin/Tazobactam 3.375 GM in Sodium Chloride 0.9% 100 ML IVPB SCH ×3 (12:20→23:42)
--- NOTE | 2019-09-19 13:42 | PDOC.CPN ---
- Subjective Date: 09/19/19 Time: 12:00 - Review of Systems General: denies: fever/chills, weight/appetite/sleep changes, night sweats, fatigue Respiratory: denies: cough, congestion, shortness of breath, exercise intolerance Cardiovascular: denies: chest pain, palpitation, edema, paroxysmal nocturnal dyspnea, orthopnea Gastrointestinal: denies: nausea, vomiting, diarrhea, constipation, abd pain, GI bleeding Musculoskeletal: denies: pain, tenderness, stiffness, swelling, arthritis/ arthralgias Neurological: denies: numbness, syncope, seizure, weakness - Objective Allergies/Adverse Reactions: Allergies Allergy/AdvReac Type Severity Reaction Status Date / Time Sulfa (Sulfonamide Allergy Verified 09/16/19 03:56 Antibiotics) Visit Medications: Current Medications Acetaminophen (Tylenol) 650 mg PO Q6H PRN PRN Reason: Pain Atorvastatin Calcium (Lipitor) 40 mg PO DAILY [facility] Last Admin: 09/19/19 08:43 Dose: 40 mg Calcitonin [place] (Miacalcin) 0 sprays EA NARE DAILY [facility] Last Admin: 09/19/19 08:44 Dose: 1 spr Carvedilol (Coreg) 3.125 mg PO BID-[facility] Last Admin: 09/19/19 08:43 Dose: 3.125 mg Dextrose/Water (Dextrose 50%) 25 gm SLOW IVP PRN PRN PRN Reason: Hypoglycemia Docusate Sodium (Colace) 100 mg PO BIDPRN PRN PRN Reason: Constipation Enoxaparin Sodium (Lovenox) 80 mg SC BID [facility] Last Admin: 09/19/19 08:43 Dose: 80 mg Gabapentin (Neurontin) 300 mg PO BID [facility] Last Admin: 09/19/19 08:43 Dose: 300 mg Glucagon (Glucagon) 1 mg IM PRN PRN PRN Reason: Hypoglycemia Hydrocortisone Sodium Succinate (Solu-Cortef) 50 mg IVP Q6HR [facility] Stop: 09/23/19 12:01 Last Admin: 09/19/19 12:20 Dose: 50 mg Dextrose/Water (D5w) 1,000 mls @ 0 mls/hr IV .Q0M PRN PRN Reason: Hypoglycemia Piperacillin Sod/Tazobactam (Sod 3.375 gm/ Sodium Chloride) 100 mls @ 200 mls/ hr IVPB Q6HR [facility] Last Admin: 09/19/19 12:20 Dose: 100 mls Insulin Human Lispro (Humalog) 0 units SC .MILD SLIDING SCALE PRN PRN Reason: Mild Correctional Scale Last Admin: 09/18/19 05:55 Dose: 2 unit Insulin Human Lispro (Humalog) 0 units SC .BEDTIME SLIDING SC PRN PRN Reason: Bedtime Correctional Scale Levothyroxine Sodium (Synthroid) 75 mcg PO DAILY [facility] Last Admin: 09/19/19 08:43 Dose: 75 mcg Ondansetron HCl (Zofran) 4 mg IVP Q6H PRN PRN Reason: Nausea/Vomiting Pantoprazole Sodium (Protonix) 40 mg IVP DAILY [facility] Last Admin: 09/19/19 08:43 Dose: 40 mg Sodium Chloride (Flush - Normal Saline) 10 ml IVF Q12HR [facility] Last Admin: 09/19/19 08:44 Dose: 10 ml Sodium Chloride (Flush - Normal Saline) 10 ml IVF PRN PRN PRN Reason: Saline Flush Last Admin: 09/17/19 06:29 Dose: 10 ml Vital Signs & Weight: Vital Signs Temp Pulse Resp BP Pulse Ox 09/19/19 12:00 97.4 F L 70 18 130/71 96 09/19/19 07:51 96 09/19/19 07:48 97.7 F 82 17 139/79 96 09/19/19 03:51 98.5 F 76 18 130/65 99 Admit Weight 166 lb 14.239 oz Weight 169 lb 3.2 oz - Physical Exam General: alert & oriented x3, appears well HEENT: mucus membranes moist Neck: supple neck Cardiac: regular rate and rhythm Lungs: clear to auscultation Neuro: grossly intact Abdomen: soft - Labs Result Diagrams: 09/19/19 04:30 09/19/19 04:30 Troponin/CKMB CK-MB (CK-2) 7.5 ng/mL (0-6.6) H* 09/16/19 07:34 Troponin I 3.007 ng/mL (< 0.028) H* 09/16/19 07:34 - Assessment/Plan Assessment/Plan: 1. NSTEMI 2. UTI and sepsis 3. AMS 4. Hypotension secondary to sepsis 5. Anemia Increase Coreg. Add ARB tomorrow if BP stable.
[2019-09-19] MEDS: Carvedilol 6.25 MG TAB PO SCH (17:59)
[2019-09-20 04:13] LABS: ALT (SGPT) 54 U/L (8-55); AST (SGOT) 48 U/L (5-34); Albumin 2.4 g/dL (3.4-4.8); Alkaline Phosphatase 75 U/L (40-110); Anion Gap 12 mmol/L (10-20); BUN (Urea Nitrogen) 15 mg/dL (9.8-20.1); Calc. Creatinine Clearance 76 mL/min (70-130); Calcium 7.8 mg/dL (7.8-10.44); Carbon Dioxide 24 mmol/L (23-31); Chloride 107 mmol/L (98-107); Estimated GFR-MDRD 85; Globulin 2.4 g/dL (2.4-3.5); Glucose 141 mg/dL (83-110); Potassium 3.8 mmol/L (3.5-5.1); Protein, Total 4.8 g/dL (6.0-8.3); Sodium 139 mmol/L (136-145)
[2019-09-20] MEDS: Hydrocortisone Sod Succ/PF 100 mg/2 ml Vial IVP SCH (05:58)
[2019-09-20] MEDS: Piperacillin/Tazobactam 3.375 GM in Sodium Chloride 0.9% 100 ML IVPB SCH ×2 (06:01→13:07)
--- NOTE | 2019-09-20 06:03 | PDOC.FM ---
- Subjective Subjective: She says her appetite has improved. She had a normal bowel movement last night. She is complaining of back pain and left ankle pain that is dull and aching in nature, she has bruising over that ankle. - Objective MAR Reviewed: Yes Vital Signs & Weight: Vital Signs (12 hours) Temp Pulse Resp BP Pulse Ox 09/20/19 03:34 97.5 F L 71 20 122/63 98 09/19/19 20:00 95 09/19/19 19:50 97.3 F L 77 20 121/65 94 L Weight Admit Weight 75.7 kg Weight 78.018 kg Most Recent Monitor Data Heart Rate from ECG 77 NIBP 113/66 NIBP BP-Mean 81 Respiration from ECG 19 SpO2 98 I&O: 09/18/19 09/19/19 09/20/19 06:59 06:59 06:59 Intake Total 1830 720 800 Output Total 800 1559 177 Balance 1030 -839 623 Result Diagrams: 09/20/19 03:38 09/20/19 03:38 EKG Reviewed by me: Yes (Sinus rhythm 60-80s with LBBB) Phys Exam - Physical Examination Constitutional: NAD HEENT: PERRLA, moist MMs, sclera anicteric Neck: no nodes, supple Respiratory: no wheezing, no rales, no rhonchi, clear to auscultation bilateral Cardiovascular: RRR Gastrointestinal: soft, non-tender, positive bowel sounds Musculoskeletal: no edema, pulses present Neurological: moves all 4 limbs Psychiatric: normal affect Deviation from normal: Ecchymosis present over lower legs Dx/Plan (1) Bacteremia Code(s): R78.81 - BACTEREMIA Status: Acute (2) Sepsis with acute hypoxic respiratory failure Code(s): A41.9 - SEPSIS, UNSPECIFIED ORGANISM; R65.20 - SEVERE SEPSIS WITHOUT SEPTIC SHOCK; J96.01 - ACUTE RESPIRATORY FAILURE WITH HYPOXIA Status: Acute (3) Sepsis secondary to UTI Code(s): A41.9 - SEPSIS, UNSPECIFIED ORGANISM; N39.0 - URINARY TRACT INFECTION, SITE NOT SPECIFIED Status: Acute (4) CHF (congestive heart failure) Code(s): I50.9 - HEART FAILURE, UNSPECIFIED Status: Acute Qualifiers: Heart failure chronicity: acute (5) LBBB (left bundle branch block) Code(s): I44.7 - LEFT BUNDLE-BRANCH BLOCK, UNSPECIFIED Status: Acute (6) NSTEMI (non-ST elevated myocardial infarction) Code(s): I21.4 - NON-ST ELEVATION (NSTEMI) MYOCARDIAL INFARCTION Status: Acute (7) Normocytic anemia Code(s): D64.9 - ANEMIA, UNSPECIFIED Status: Acute (8) Diabetes mellitus Code(s): E11.9 - TYPE 2 DIABETES MELLITUS WITHOUT COMPLICATIONS Status: Chronic (9) History of vertebral compression fracture Code(s): Z87.81 - PERSONAL HISTORY OF (HEALED) TRAUMATIC FRACTURE Status: Chronic (10) Hypertension Code(s): I10 - ESSENTIAL (PRIMARY) HYPERTENSION Status: Chronic (11) Acute encephalopathy Code(s): G93.40 - ENCEPHALOPATHY, UNSPECIFIED Status: Acute - Plan Plan: 84 yo F presented with fever & AMS; admitted for Hypotension 2/2 urosepsis, NSTEMI, possible new onset HF, encephalopathy likely related to prior diagnosis. COVID r/o. 1. Severe Sepsis 2/2 ESBL UTI with gram neg. Bacteremia * pending finalized [place] UCx and Bcx. * Changed to Zosyn received Rocephin 09/14-09/18 & Vanc 09/15-09/17 * BPs improved, procal downtrending, clinically improving 2. Anemia-Improving s/p 2 PRBC units * Hb 10.1, at goal 3. AHRF requiring supplemental O2- Resolved Non hypoxic on RA. * Likely from anemia in light of improvement. 4. Low BPs-resolved s/p PRBC On solucortef, AM cortisol 40 (adequate) * Pulm consulted, recs appreciated * Hold diuretics for now. Will continue to monitor. 5.NSTEMI Th. Lovenox started * EKG: LBBB& LAD * Troponin downtrending * Cards on board, recs appreciated. 6. New onset CHFrEF Elevated BNP * TTE with EF 30-35% * Cards on board, recs appreciated. * Increased Carvedilol and recommend ARB starting today. * Considered Cath, will touch base today. 7. Encephalopathy likely 2/2 acute illness/dementia At baseline per . 8. Hyponatremia-Resolved. 9. Hypoalbuminemia- s/p albumin Likely from poor intake. * Added ensure, dietary on board. 10. Suspected dementia SLUMS score 6 * Brain CT with cerebral atrophy * Has f/u appt with neurologist outpatient 11. Physical deconditioning * PT set up * Pending hospital course may need rescreen. 12. Vertebral compression fx f/u appt with [place] neurosurgery * Resume calcitonin * Tylenol & gabapentin for pain control * Rx OP rheum f/u 13. Leukocytosis Still elevated at 20, but other inflamm makers downtrending * peripheral smear: pending * Currently on steroids 14. Urinary retention Continue voiding trial * Intermittent straight cath of needed * Work with PT/OT 15. Hx of tx of C.Diff No test results at rehab * Empirically treated with PO vanc for ~5days * One loose BM, if continues to have will obtain CDiff toxin analysis * No imodium Dispo: Tele inpt for bacteremia. LOS > 48H. Will touch base with Cardiology today and continue IV Abx. Addendum - Attending - Attending Attestation Date/Time: 09/20/19 3082 I personally evaluated the patient and discussed the management with Dr. Mustafa. I agree with the History, Examination, Assessment and Plan documented above with any addition or exceptions noted below. Patient here for ESBL E. coli UTI and bacteremia likely 2/2 urinary retention. She is on Zosyn, dictated by outside hospital cultures. Her PCT is downtrending as expected. She is also receiving anticoagulation for NSTEMI, cardiology on board. Working on plan for outpatient antibiotics due to ESBL status. ID consulted.
[2019-09-20] MEDS: Carvedilol 6.25 MG TAB PO SCH ×2 (08:29→17:33)
[2019-09-20] MEDS: Atorvastatin Calcium 20 MG TAB PO SCH (08:30)
[2019-09-20] MEDS: Calcitonin,Salmon,Synthetic 200 Units 3.7 ML PUMP EA NARE SCH (08:30)
[2019-09-20] MEDS: Gabapentin 300 MG CAP PO SCH ×2 (08:30→21:20)
[2019-09-20] MEDS: Enoxaparin Sodium 80 MG/0.8 ML SYRINGE SC SCH (08:30)
[2019-09-20] MEDS: Levothyroxine Sodium 75 MCG TAB PO SCH (08:30)
[2019-09-20] MEDS: Pantoprazole 40 MG VIAL IVP SCH (08:30)
[2019-09-20 09:11] LABS: Mean Corpuscular HGB CONC 35.2 g/dL (32.0-36.0); Mean Corpuscular Hemoglobin 35.5 pg (27.0-31.0); Mean Platelet Volume 9.5 fL (7.4-10.4); Platelet Count 188 thou/uL (130-400); RBC Distribution Width 16.3 % (11.5-14.5); Red Blood Cell (RBC) Count 2.83 mill/uL (4.20-5.40); White Blood Cell (WBC) Count 26.1 thou/uL (4.8-10.8)
[2019-09-20 09:40] LABS: Band 14 % (5-11); Burr Cells SLIGHT = 2-5 cells (100X) (0-1/hpf); Lymphocytes 6 % (21-51); MDiff Complete? YES; Macrocytosis SLIGHT = 6-15 cells (100X) (0-5/hpf); Metamyelocyte 7 % (0-0); Monocytes 7 % (0-10); Myelocyte 3 % (0-0); Neutrophil 61 % (42-75); Nucleated RBC 5 % (0); Platelet Morphology Comment Appears Adequate; Polychromasia MODERATE = 3-4 cells (100X) (0-2/hpf); Reactive Lymphocytes 2 % (0-10); Schistocytes SLIGHT = 2-5 cells (100X) (0-1/hpf)
[2019-09-20] MEDS ORDERED: Enoxaparin Sodium 40 MG/0.4 ML SYRINGE SC SCH (13:15)
--- NOTE | 2019-09-20 18:25 | CT ---
CT ABDOMEN AND PELVIS WITHOUT CONTRAST STONE PROTOCOL: History: Pyelonephritis. Comparison: None FINDINGS: There are moderate bilateral layering pleural effusions. No significant pericardial fluid. There is a relatively large caudate lobe cyst measuring 3.7 cm in size. There is cholelithiasis without any pericholecystic inflammation. Hypodensity in the right kidney erin sures fluid attenuation suggestive of a cyst. Moderate vascular calcifications of the aorta. There appears to be a right sided renal hypodensity an d right Bartholin gland cyst which are incompletely evaluated. Mild presacral edema around the rectum. Mild diverticular disease of the sigmoid colon without active current inflammation. Small fat containing umbilical hernia. There is a small foci of gas and subcutaneous fat along the ri ght hemiabdomen, likely injection related. Incomplete burst fracture of L5 with retropulsion 3 mm and 20% superior endplate posterior height loss. This fracture appears similar to the prior lumbar spine radiographs. There are fractures of T12 and L1 which are also similar. There is narrowing of the pubic symphysis. IMPRESSION: 1. No hydroureteronephrosis or nephroureterolithiasis. No secondary evidence of recently passed ston e. 2. Bilateral relatively symmetric perinephric stranding likely of chronic medical renal disease. No e vidence of pyelonephritis, although this evaluation is limited without intravenous contrast. Recommen d correlation with urinalysis. 3. Simple hepatic cyst. 4. Mild bilateral pleural effusions. 5. Diverticular disease of the colon without active inflammation. 6. Mild presacaral edema. This could reflect third spacing of fluid, as it is relatively separate fro m the rectum. 7. Incidental note is made of what appears to be a Bartholin gland cyst adjacent to the right labia. POS: HOME
[2019-09-20] MEDS: MEROPENEM 1 GM/50 ML 1 GM in Premix Bag 1 BAG IVPB SCH (18:53)
[2019-09-21] MEDS: MEROPENEM 1 GM/50 ML 1 GM in Premix Bag 1 BAG IVPB SCH ×4 (02:13→19:41)
[2019-09-21 05:09] LABS: ALT (SGPT) 59 U/L (8-55); AST (SGOT) 43 U/L (5-34); Albumin 2.4 g/dL (3.4-4.8); Alkaline Phosphatase 80 U/L (40-110); Anion Gap 8 mmol/L (10-20); BUN (Urea Nitrogen) 14 mg/dL (9.8-20.1); Bilirubin, Total 1.1 mg/dL (0.2-1.2); Calc. Creatinine Clearance 80 mL/min (70-130); Calcium 7.7 mg/dL (7.8-10.44); Carbon Dioxide 28 mmol/L (23-31); Chloride 105 mmol/L (98-107); Estimated GFR-MDRD 90; Globulin 2.3 g/dL (2.4-3.5); Glucose 81 mg/dL (83-110); Potassium 3.2 mmol/L (3.5-5.1); Protein, Total 4.7 g/dL (6.0-8.3); Sodium 138 mmol/L (136-145)
[2019-09-21 05:44] LABS: Hemoglobin 10.4 g/dL (12.0-16.0); Mean Corpuscular HGB CONC 36.3 g/dL (32.0-36.0); Mean Corpuscular Hemoglobin 36.2 pg (27.0-31.0); Mean Corpuscular Volume 99.7 fL (78.0-98.0); Mean Platelet Volume 9.1 fL (7.4-10.4); Platelet Count 227 thou/uL (130-400); RBC Distribution Width 17.3 % (11.5-14.5); Red Blood Cell (RBC) Count 2.89 mill/uL (4.20-5.40)
[2019-09-21 05:52] LABS: Band 8 % (5-11); Eosinophils 1 % (0-10); Lymphocytes 14 % (21-51); MDiff Complete? YES; Metamyelocyte 2 % (0-0); Monocytes 5 % (0-10); Myelocyte 10 % (0-0); Neutrophil 58 % (42-75); Nucleated RBC 4 % (0); Platelet Morphology Comment Appears Adequate; Polychromasia SLIGHT = 2-3 cells (100X) (0-2/hpf); Reactive Lymphocytes 2 % (0-10); White Blood Cell (WBC) Count 21.6 thou/uL (4.8-10.8)
--- NOTE | 2019-09-21 06:29 | CON ---
DATE OF CONSULTATION: 09/20/2019 REASON FOR CONSULTATION: E. coli bacteremia with cystitis, pyelonephritis. HISTORY OF PRESENT ILLNESS: An 84-year-old who has a history of hypertension, type 2 diabetes, and history of confusional state, weakness for the past few days before admission. She was seen in [facility]. She was found to be hypotensive and blood pressure 90/52, showed her to have [id number] elevation NE. Initial findings included blood pressure was 82/44, pulse 83, temperature 99.8, O2 saturations were 92 and 99, and we have now from [place] two sets of blood cultures, one of them with E coli, which is ESBL phenotype, and the same organism retrieved from the urine sample, greater than 100,000 CFU/mL. The patient has been treated with piperacillin/tazobactam. She is feeling better and wants to go home. Her cognitive status is limited. She has quite a bit of difficulty with recollection of events and could not give me a precise sequence of the events that led to admission. She currently denies headaches. No visual symptoms, sore throat, odynophagia, or dysphagia. No back pain. No shoulder pain. No dyspnea, cough, or sputum production. No abdominal pain. She feels her chronic joint symptoms. No neurological symptoms except for forgetfulness. PAST MEDICAL HISTORY: Type 2 diabetes, hypertension, and hypothyroidism. She does have some element of cognitive dysfunction and early dementia. This is not listed here in the note. ALLERGIES: SULFA DRUGS. SOCIAL HISTORY: Never smoker. Lives about 30 [address] [place] here. Does not drink alcoholic beverages. MEDICATION LIST: 1. Lipitor. 2. Miacalcin. 3. Coreg. 4. Colace. 5. Lovenox. 6. Neurontin. 7. Insulin. 8. Synthroid. 9. Zestril. 10. Zofran. 11. Protonix. 12. Zosyn. PHYSICAL EXAMINATION: VITAL SIGNS: Temperature is normal, blood pressure 130/60, pulse 66, respirations 16, O2 saturation 97. GENERAL: Patient in no distress. She has areas of bruising in the upper extremities, probably from venipuncture sites, in the lower extremities as well. She has intertriginous maceration and erythema. Toscano catheter inserted and looks like it has been removed now. She is voiding in the diaper. Peripheral IV access. No lymphadenopathy. HEENT: Ocular movements conjugate. Sclerae white. Pupils are equal. Conjunctivae normal. Nasal passages are patent. Oral cavity, not particularly remarkable. NECK: Supple. No jugular vein distention. LUNGS: Symmetric clear breath sounds. HEART: S1 and S2, regular rate. No S3 or S4. ABDOMEN: Soft, not distended or tender. No ascites. No bladder distention. EXTREMITIES: She has some tenderness on palpation of the lower extremity skin in the areas of bruising. No joint tenderness. Plantar responses are flexor. No clonus. NEUROLOGIC: She is awake and knows her name. She knew she was in Could not tell me the date. Speech appeared to be okay. She could not recall many events. She obviously has cognitive dysfunction. DIAGNOSTIC AND LABORATORY DATA: White cell count was 20, now is 26,000, hemoglobin 10, platelets 188, and bands are up to 14%. Creatinine 0.66. AST 48. Echocardiogram with EF 35%, moderate MR, severe tricuspid regurgitation. ASSESSMENT: Type 2 diabetes, cardiomyopathy, hypertension, dementia, possible urinary retention, urosepsis with bacteremia with extended-spectrum beta- lactamase organism. DISCUSSION: The patient may have a nephrolithiasis or other forms of urinary tract outflow obstruction as well as possibility of a neurogenic bladder with urinary retention. We will check a CT stone protocol and bladder scan to rule out urinary retention. Switch her to meropenem since carbapenems have better outcomes compared with piperacillin-tazobactam in treatment of ESBL and pathogens. Duration of therapy if the imaging studies are normal around two weeks, PICC line placement. Job ID: [id number] [facility]
--- NOTE | 2019-09-21 07:08 | PDOC.FM ---
- Subjective Subjective: She says she did not sleep well last night with everyone coming and going. She says her last BM was 2 days ago. She endorses back pain and complains of leg pain when touched. She is eating this morning. - Objective MAR Reviewed: Yes Vital Signs & Weight: Vital Signs (12 hours) Temp Pulse Resp BP Pulse Ox 09/21/19 03:15 97.2 F L 68 18 133/63 95 09/20/19 20:47 97.4 F L 69 18 137/73 98 Weight Admit Weight 75.7 kg Weight 78.018 kg Most Recent Monitor Data Heart Rate from ECG 77 NIBP 113/66 NIBP BP-Mean 81 Respiration from ECG 19 SpO2 98 I&O: 09/20/19 09/21/19 09/22/19 06:59 06:59 06:59 Intake Total 1280 480 Output Total 177 108 Balance 1103 372 Result Diagrams: 09/21/19 04:15 09/21/19 04:15 EKG Reviewed by me: Yes (ST for 5 secs, SR 60-80s) Phys Exam - Physical Examination Constitutional: NAD HEENT: moist MMs, oral pharynx no lesions Neck: no nodes, supple Respiratory: no wheezing, no rales, no rhonchi, clear to auscultation bilateral Cardiovascular: RRR Gastrointestinal: soft, non-tender, positive bowel sounds Musculoskeletal: pulses present trace edema Neurological: moves all 4 limbs Lymphatic: no nodes Psychiatric: normal affect Skin: no rash, normal turgor Dx/Plan (1) Bacteremia Code(s): R78.81 - BACTEREMIA Status: Acute (2) Sepsis with acute hypoxic respiratory failure Code(s): A41.9 - SEPSIS, UNSPECIFIED ORGANISM; R65.20 - SEVERE SEPSIS WITHOUT SEPTIC SHOCK; J96.01 - ACUTE RESPIRATORY FAILURE WITH HYPOXIA Status: Acute (3) Sepsis secondary to UTI Code(s): A41.9 - SEPSIS, UNSPECIFIED ORGANISM; N39.0 - URINARY TRACT INFECTION, SITE NOT SPECIFIED Status: Acute (4) CHF (congestive heart failure) Code(s): I50.9 - HEART FAILURE, UNSPECIFIED Status: Acute Qualifiers: Heart failure chronicity: acute (5) LBBB (left bundle branch block) Code(s): I44.7 - LEFT BUNDLE-BRANCH BLOCK, UNSPECIFIED Status: Acute (6) NSTEMI (non-ST elevated myocardial infarction) Code(s): I21.4 - NON-ST ELEVATION (NSTEMI) MYOCARDIAL INFARCTION Status: Acute (7) Normocytic anemia Code(s): D64.9 - ANEMIA, UNSPECIFIED Status: Acute (8) Diabetes mellitus Code(s): E11.9 - TYPE 2 DIABETES MELLITUS WITHOUT COMPLICATIONS Status: Chronic (9) History of vertebral compression fracture Code(s): Z87.81 - PERSONAL HISTORY OF (HEALED) TRAUMATIC FRACTURE Status: Chronic (10) Hypertension Code(s): I10 - ESSENTIAL (PRIMARY) HYPERTENSION Status: Chronic (11) Acute encephalopathy Code(s): G93.40 - ENCEPHALOPATHY, UNSPECIFIED Status: Acute - Plan Plan: 84 yo F presented with fever & AMS; admitted for Hypotension 2/2 urosepsis, NSTEMI, possible new onset HF, encephalopathy likely related to prior diagnosis. COVID r/o. 1. Severe Sepsis 2/2 ESBL UTI with gram neg. Bacteremia * Finalized [place] UCx and Bcx. * Changed to Meropenem from Zosyn 09/18-09/19, Rocephin 09/14-09/18, & Vanc 09/15- * BPs improved, procal downtrending, clinically improving * ID consulted, appreciate recs. * Changed Abx to Meropenem and recommends 2 wks of Abx with PICC line placement 2. Anemia-Improving s/p 2 PRBC units * Hb 10.4, at goal 3. AHRF requiring supplemental O2- Resolved Non hypoxic on RA. * Likely from anemia in light of improvement. 4. Low BPs-resolved s/p PRBC AM cortisol 40 (adequate) * Pulm consulted, recs appreciated * Hold diuretics for now. Will continue to monitor. * Solucortef d/c yesterday 5.NSTEMI Lovenox for PPx * EKG: LBBB& LAD * Troponin downtrending * Cards on board, recs appreciated. 6. New onset CHFrEF Elevated BNP * TTE with EF 30-35% * Cards on board, recs appreciated. * Increased Carvedilol and recommend ARB starting today. * Will likely continue on medical management due to bacteremia 7. Encephalopathy likely 2/2 acute illness/dementia At baseline per . 8. Hyponatremia-Resolved. 9. Hypoalbuminemia- s/p albumin Likely from poor intake. * Ensure added, dietary on board. 10. Suspected dementia SLUMS score 6 * Brain CT with cerebral atrophy * Has f/u appt with neurologist outpatient 11. Physical deconditioning * PT set up * Pending hospital course may need rescreen. 12. Vertebral compression fx f/u appt with [place] neurosurgery * Resume calcitonin * Tylenol & gabapentin for pain control * Rx OP rheum f/u 13. Leukocytosis Still elevated at 21, but other inflamm makers downtrending * peripheral smear: pending * Currently on steroids 14. Urinary retention Continue voiding trial * Intermittent straight cath of needed * Work with PT/OT 15. Hx of tx of C.Diff No test results at rehab * Empirically treated with PO vanc for ~5days * One loose BM, if continues to have will obtain CDiff toxin analysis * No imodium 16. Hypokalemia K: 3.2 * Will replace today Diet: Regular Soft Mechanical with Ensure added and 1800 mL fluid restriction DVT PPx: Lovenox IVF: SL GI PPx: Protonix PCP: [facility] Dispo: Tele inpt for bacteremia. LOS > 48H. Will work on PICC line placement today and discuss d/c planning with CM. Will discuss d/c with Cardio. Addendum - Attending - Attending Attestation Date/Time: 09/21/19 1200 I personally evaluated the patient and discussed the management with Dr. Mustafa. I agree with the History, Examination, Assessment and Plan documented above with any addition or exceptions noted below. Patient here with ESBL E. Coli bacteremia. PICC line today, on Meropenem. Suggest this is likely 2/2 urinary retention with high PVR. ID on board. Will need placement. Labs overall stable.
[2019-09-21] MEDS ORDERED: Potassium Chloride 20 MEQ TAB PO SCH (07:15)
[2019-09-21] MEDS: Calcitonin,Salmon,Synthetic 200 Units 3.7 ML PUMP EA NARE SCH (08:44)
[2019-09-21] MEDS: Atorvastatin Calcium 20 MG TAB PO SCH (08:45)
[2019-09-21] MEDS: Levothyroxine Sodium 75 MCG TAB PO SCH (08:45)
[2019-09-21] MEDS: Gabapentin 300 MG CAP PO SCH ×2 (08:45→20:39)
[2019-09-21] MEDS: Enoxaparin Sodium 40 MG/0.4 ML SYRINGE SC SCH (08:45)
[2019-09-21] MEDS: Carvedilol 6.25 MG TAB PO SCH ×2 (08:45→16:25)
[2019-09-21] MEDS: Pantoprazole 40 MG VIAL IVP SCH (08:46)
[2019-09-21] MEDS ORDERED: Lisinopril 2.5 MG TAB PO SCH (09:00)
--- NOTE | 2019-09-21 10:23 | PRG ---
DATE OF SERVICE: SUBJECTIVE: This morning, she is awake, alert, and responsive. OBJECTIVE: VITAL SIGNS: Temperature 97, respirations 16, sats 97 on room air, blood pressure 140/65 CHEST: No wheezing or crackles. CARDIAC: Normal S1 and S2. No gallops. ABDOMEN: No masses. LABORATORY DATA: CT abdomen shows no pyelonephritis. No hydronephrosis. Small pleural effusion. White count is still 21,000 with 58 segs, 8 bands. She has 10 myelocytes, 2 metamyelocytes. Lytes are normal. ASSESSMENT: Urosepsis, dementia, congestive heart failure, small pleural effusion. From the Pulmonary standpoint, I feel it appears that pleural effusion may very well be from CHF. adjusted. We will follow. Job ID: [id number]
--- NOTE | 2019-09-21 12:12 | SPC ---
Left upper extremity PICC placement sonographic guided HISTORY: UTI. FINDINGS: After explaining the procedure and answering all questions, left upper extremity was preppe d and draped in usual sterile fashion. Sterile technique, buffered local anesthesia, sonographic guidance, and a 22-gauge needle were used to access the left basilic vein. Standard technique was used to place the tip of a 5 [place] single lumen PICC so that the tip lies at the level of the superior vena cava. Catheter was flushed and secured externally. Patient tolerated the procedure well and was returned in unchanged condition. Fluoroscopy time 0.1 minutes. IMPRESSION : Left upper extremity PICC is ready for use.
--- NOTE | 2019-09-21 13:00 | PDOC.CPN ---
- Subjective Date: 09/21/19 Time: 12:59 Interval history: No new issues. Getting a little fluid up. - Review of Systems ROS unobtainable: due to mental status - Objective Allergies/Adverse Reactions: Allergies Allergy/AdvReac Type Severity Reaction Status Date / Time Sulfa (Sulfonamide Allergy Verified 09/16/19 03:56 Antibiotics) Visit Medications: Current Medications Acetaminophen (Tylenol) 650 mg PO Q6H PRN PRN Reason: Pain Atorvastatin Calcium (Lipitor) 40 mg PO DAILY [facility] Last Admin: 09/21/19 08:45 Dose: 40 mg Calcitonin [place] (Miacalcin) 0 sprays EA NARE DAILY [facility] Last Admin: 09/21/19 08:44 Dose: 1 spr Carvedilol (Coreg) 6.25 mg PO BID-[facility] Last Admin: 09/21/19 08:45 Dose: 6.25 mg Dextrose/Water (Dextrose 50%) 25 gm SLOW IVP PRN PRN PRN Reason: Hypoglycemia Docusate Sodium (Colace) 100 mg PO BIDPRN PRN PRN Reason: Constipation Enoxaparin Sodium (Lovenox) 40 mg SC DAILY [facility] Last Admin: 09/21/19 08:45 Dose: 40 mg Gabapentin (Neurontin) 300 mg PO BID [facility] Last Admin: 09/21/19 08:45 Dose: 300 mg Glucagon (Glucagon) 1 mg IM PRN PRN PRN Reason: Hypoglycemia Dextrose/Water (D5w) 1,000 mls @ 0 mls/hr IV .Q0M PRN PRN Reason: Hypoglycemia Meropenem 1 gm/ Device 50 mls @ 100 mls/hr IVPB Q8H [facility] Last Admin: 09/21/19 12:03 Dose: 50 mls Insulin Human Lispro (Humalog) 0 units SC .MILD SLIDING SCALE PRN PRN Reason: Mild Correctional Scale Last Admin: 09/18/19 05:55 Dose: 2 unit Insulin Human Lispro (Humalog) 0 units SC .BEDTIME SLIDING SC PRN PRN Reason: Bedtime Correctional Scale Levothyroxine Sodium (Synthroid) 75 mcg PO DAILY [facility] Last Admin: 09/21/19 08:45 Dose: 75 mcg Lisinopril (Zestril) 2.5 mg PO DAILY [facility] Last Admin: 09/21/19 08:45 Dose: 2.5 mg Ondansetron HCl (Zofran) 4 mg IVP Q6H PRN PRN Reason: Nausea/Vomiting Pantoprazole Sodium (Protonix) 40 mg IVP DAILY [facility] Last Admin: 09/21/19 08:46 Dose: 40 mg Sodium Chloride (Flush - Normal Saline) 10 ml IVF Q12HR [facility] Last Admin: 09/21/19 08:46 Dose: 10 ml Sodium Chloride (Flush - Normal Saline) 10 ml IVF PRN PRN PRN Reason: Saline Flush Last Admin: 09/21/19 02:15 Dose: 10 ml Vital Signs & Weight: Vital Signs Temp Pulse Resp BP Pulse Ox 09/21/19 11:54 98.9 F 66 16 131/63 98 09/21/19 10:45 97 09/21/19 07:15 97.4 F L 64 16 142/65 H 97 09/21/19 03:15 97.2 F L 68 18 133/63 95 Admit Weight 166 lb 14.239 oz Weight 174 lb 3.2 oz - Physical Exam General: no apparent distress HEENT: normocephaly Neck: supple neck Cardiac: regular rate and rhythm Lungs: clear to auscultation Neuro: no lateralizing findings Abdomen: active bowel sounds Extremities: 1+ LE edema Skin: clear Musculoskeletal: no pain - Labs Result Diagrams: 09/21/19 04:15 09/21/19 04:15 Troponin/CKMB CK-MB (CK-2) 7.5 ng/mL (0-6.6) H* 09/16/19 07:34 Troponin I 3.007 ng/mL (< 0.028) H* 09/16/19 07:34 - Telemetry Sinus rhythms and dysrhythmias: sinus rhythm - Assessment/Plan Assessment/Plan: 1. NSTEMI, likely type 2 [place] demand ischemia 2. UTI, sepsis 3. Altered mental status, improved. 4. Anemia, improved after blood transfusion 5. Hypotension, resolved. 6. Severe dilated cardiomyopathy PLAN: - Will start CHF medications as tolerated. - Will start Entresto tomorrow. continue current BB dose. - Will discuss lifevest with family when close to discharge. - Placement.
[2019-09-21 17:13] LABS: Hematocrit 26.2 % (34.0-46.6); RBC Folate Test Component 1649 ng/mL (>498)
[2019-09-21] MEDS ORDERED: Sacubitril 24.5 MG/Valsartan 25.5 MG TABLET PO SCH (21:00)
[2019-09-22] MEDS: MEROPENEM 1 GM/50 ML 1 GM in Premix Bag 1 BAG IVPB SCH ×3 (03:51→19:40)
[2019-09-22 05:28] LABS: ALT (SGPT) 45 U/L (8-55); AST (SGOT) 24 U/L (5-34); Albumin 2.3 g/dL (3.4-4.8); Alkaline Phosphatase 83 U/L (40-110); Anion Gap 9 mmol/L (10-20); BUN (Urea Nitrogen) 11 mg/dL (9.8-20.1); Bilirubin, Total 1.1 mg/dL (0.2-1.2); Calc. Creatinine Clearance 83 mL/min (70-130); Calcium 7.6 mg/dL (7.8-10.44); Carbon Dioxide 30 mmol/L (23-31); Chloride 100 mmol/L (98-107); Estimated GFR-MDRD Greater than 90; Globulin 2.1 g/dL (2.4-3.5); Glucose 101 mg/dL (83-110); Potassium 3.8 mmol/L (3.5-5.1); Protein, Total 4.4 g/dL (6.0-8.3); Sodium 135 mmol/L (136-145)
--- NOTE | 2019-09-22 06:26 | PDOC.FM ---
- Subjective Subjective: She says her back pain is fine as long as she does not move around too much. The pain has resolved in her legs. She has not had a BM in 3 days at least and she is concerned. She is eating well but not finishing her plate. She slept well overnight. - Objective MAR Reviewed: Yes Vital Signs & Weight: Vital Signs (12 hours) Temp Pulse Resp BP Pulse Ox 09/22/19 03:28 98.4 F 70 20 127/59 L 93 L 09/21/19 19:34 97.9 F 70 18 134/67 97 Weight Admit Weight 75.7 kg Weight 78.154 kg Most Recent Monitor Data Heart Rate from ECG 77 NIBP 113/66 NIBP BP-Mean 81 Respiration from ECG 19 SpO2 98 I&O: 09/20/19 09/21/19 09/22/19 06:59 06:59 06:59 Intake Total 6756 997 2634 Output Total 506 074 7553 Balance 1103 372 -1220 Result Diagrams: 09/22/19 04:42 09/22/19 04:42 EKG Reviewed by me: Yes (Sinus Rhythm- Sinus Tachy 90s-110s) Phys Exam - Physical Examination Constitutional: NAD HEENT: PERRLA, moist MMs, sclera anicteric, oral pharynx no lesions Neck: no nodes, supple Respiratory: no wheezing, no rales, no rhonchi, clear to auscultation bilateral Cardiovascular: RRR, no significant murmur, no rub Gastrointestinal: soft, non-tender, positive bowel sounds Musculoskeletal: no edema, pulses present Neurological: normal sensation Lymphatic: no nodes Psychiatric: normal affect Skin: no rash, normal turgor Dx/Plan (1) Bacteremia Code(s): R78.81 - BACTEREMIA Status: Acute (2) Sepsis with acute hypoxic respiratory failure Code(s): A41.9 - SEPSIS, UNSPECIFIED ORGANISM; R65.20 - SEVERE SEPSIS WITHOUT SEPTIC SHOCK; J96.01 - ACUTE RESPIRATORY FAILURE WITH HYPOXIA Status: Acute (3) Sepsis secondary to UTI Code(s): A41.9 - SEPSIS, UNSPECIFIED ORGANISM; N39.0 - URINARY TRACT INFECTION, SITE NOT SPECIFIED Status: Acute (4) CHF (congestive heart failure) Code(s): I50.9 - HEART FAILURE, UNSPECIFIED Status: Acute Qualifiers: Heart failure chronicity: acute (5) LBBB (left bundle branch block) Code(s): I44.7 - LEFT BUNDLE-BRANCH BLOCK, UNSPECIFIED Status: Acute (6) NSTEMI (non-ST elevated myocardial infarction) Code(s): I21.4 - NON-ST ELEVATION (NSTEMI) MYOCARDIAL INFARCTION Status: Acute (7) Normocytic anemia Code(s): D64.9 - ANEMIA, UNSPECIFIED Status: Acute (8) Diabetes mellitus Code(s): E11.9 - TYPE 2 DIABETES MELLITUS WITHOUT COMPLICATIONS Status: Chronic (9) History of vertebral compression fracture Code(s): Z87.81 - PERSONAL HISTORY OF (HEALED) TRAUMATIC FRACTURE Status: Chronic (10) Hypertension Code(s): I10 - ESSENTIAL (PRIMARY) HYPERTENSION Status: Chronic (11) Acute encephalopathy Code(s): G93.40 - ENCEPHALOPATHY, UNSPECIFIED Status: Acute - Plan Plan: 84 yo F presented with fever & AMS; admitted for Hypotension 2/2 urosepsis, NSTEMI, possible new onset HF, encephalopathy likely related to prior diagnosis. COVID r/o. 1. Severe Sepsis 2/2 ESBL UTI with gram neg. Bacteremia * Finalized [place] UCx and Bcx. * Changed to Meropenem from Zosyn 09/18-09/19, Rocephin 09/14-09/18, & Vanc 09/15- * BPs improved, procal downtrending, clinically improving * ID consulted, appreciate recs. * Changed Abx to Meropenem and recommends 2 wks of Abx with PICC line placement 2. Anemia-Improving s/p 2 PRBC units * Hb 10.4, at goal 3. AHRF requiring supplemental O2- Resolved Non hypoxic on RA. * Likely from anemia in light of improvement. 4. Low BPs-resolved s/p PRBC AM cortisol 40 (adequate) * Pulm consulted, recs appreciated * Hold diuretics for now. Will continue to monitor. * Solucortef d/c yesterday 5.NSTEMI Lovenox for PPx * EKG: LBBB & LAD * Troponin down-trending * Cards on board, recs appreciated. 6. New onset CHFrEF Elevated BNP * TTE with EF 30-35% * Cards on board, recs appreciated. * Increased Carvedilol * Will likely continue on medical management due to bacteremia * Will start Entresto today * Life vest needs to be discussed with family 7. Encephalopathy likely 2/2 acute illness/dementia At baseline per . 8. Hyponatremia-Resolved. 9. Hypoalbuminemia- s/p albumin Likely from poor intake. * Ensure added, dietary on board. 10. Suspected dementia SLUMS score 6 * Brain CT with cerebral atrophy * Has f/u appt with neurologist outpatient 11. Physical deconditioning * PT set up * Pending hospital course may need rescreen. 12. Vertebral compression fx f/u appt with [place] neurosurgery * Resume calcitonin * Tylenol & gabapentin for pain control * Rx OP rheum f/u 13. Leukocytosis Still elevated at 21, but other inflamm makers downtrending * peripheral smear: pending * Currently on steroids 14. Urinary retention Continue voiding trial * Intermittent straight cath of needed * Work with PT/OT 15. Hx of tx of C.Diff No test results at rehab * Empirically treated with PO vanc for ~5days * One loose BM, if continues to have will obtain CDiff toxin analysis * No imodium 16. Hypokalemia K: 3.2 * Will replace today Diet: Regular Soft Mechanical with Ensure added and 1800 mL fluid restriction DVT PPx: Lovenox IVF: SL GI PPx: Protonix PCP: [facility] Dispo: Tele inpt for bacteremia. LOS > 48H. Continue IV Abx, currently working on placement, started Entresto today, & will need to discuss life vest with family. Addendum - Attending - Attending Attestation Date/Time: 09/22/19 6840 I personally evaluated the patient and discussed the management with Dr. Mustafa. I agree with the History, Examination, Assessment and Plan documented above with any addition or exceptions noted below. Patient feeling better this morning. Continue IV abx for ESBL E. coli bacteremia. PCT downtrending well, WBC pending. She will need outpatient abx and working on SNF placement with . She should be stable for discharge once that is set up.
[2019-09-22 08:34] LABS: Anisocytosis SLIGHT = 6-15 cells (100X) (0-5/hpf); Band 6 % (5-11); Eosinophils 1 % (0-10); Hemoglobin 11.2 g/dL (12.0-16.0); Lymphocytes 9 % (21-51); MDiff Complete? YES; Macrocytosis SLIGHT = 6-15 cells (100X) (0-5/hpf); Mean Corpuscular HGB CONC 34.3 g/dL (32.0-36.0); Mean Corpuscular Hemoglobin 34.9 pg (27.0-31.0); Mean Platelet Volume 9.8 fL (7.4-10.4); Metamyelocyte 6 % (0-0); Monocytes 14 % (0-10); Myelocyte 10 % (0-0); Neutrophil 52 % (42-75); Nucleated RBC 2 % (0); Platelet Count 205 thou/uL (130-400); Platelet Morphology Comment Appears Adequate; Polychromasia SLIGHT = 2-3 cells (100X) (0-2/hpf); RBC Distribution Width 17.7 % (11.5-14.5); Reactive Lymphocytes 2 % (0-10); White Blood Cell (WBC) Count 17.8 thou/uL (4.8-10.8)
[2019-09-22] MEDS: Gabapentin 300 MG CAP PO SCH ×2 (09:00→20:54)
[2019-09-22] MEDS: Carvedilol 6.25 MG TAB PO SCH ×2 (09:00→16:50)
[2019-09-22] MEDS: Levothyroxine Sodium 75 MCG TAB PO SCH (09:00)
[2019-09-22] MEDS: Pantoprazole 40 MG VIAL IVP SCH (09:01)
[2019-09-22] MEDS: Atorvastatin Calcium 20 MG TAB PO SCH (09:01)
[2019-09-22] MEDS: Calcitonin,Salmon,Synthetic 200 Units 3.7 ML PUMP EA NARE SCH (09:02)
[2019-09-22] MEDS: Enoxaparin Sodium 40 MG/0.4 ML SYRINGE SC SCH (09:03)
--- NOTE | 2019-09-22 10:04 | PRG ---
DATE OF SERVICE: 09/22/2019 SUBJECTIVE: This morning, she is awake, alert, and responsive. She is eager to go home. OBJECTIVE: VITAL SIGNS: Temperature 97, pulse 67, respirations 16, saturations 96% on room air, blood pressure 130/63. CHEST: Decreased breath sounds. No wheezing. CARDIAC: Normal S1 and S2. No gallops. ABDOMEN: No masses. LABORATORY DATA: White count 17,000, H and H 11 and 32, platelet count is normal. ASSESSMENT AND PLAN: Presumed pyelonephritis. All cultures negative. She is started on meropenem long-term with a PICC line in place. Small pleural effusion, probably diastolic dysfunction. Antibiotics as per Infectious Disease. Disposition as per primary care physician. Pulmonary has nothing additional to offer at this time, call if needed. Job ID: [id number]
--- NOTE | 2019-09-22 13:08 | PDOC.CPN ---
- Subjective Date: 09/22/19 Time: 12:58 Interval history: She is doing much better today. No - Objective Allergies/Adverse Reactions: Allergies Allergy/AdvReac Type Severity Reaction Status Date / Time Sulfa (Sulfonamide Allergy Verified 09/16/19 03:56 Antibiotics) Visit Medications: Current Medications Acetaminophen (Tylenol) 650 mg PO Q6H PRN PRN Reason: Pain Atorvastatin Calcium (Lipitor) 40 mg PO DAILY [facility] Last Admin: 09/22/19 09:01 Dose: 40 mg Calcitonin [place] (Miacalcin) 0 sprays EA NARE DAILY [facility] Last Admin: 09/22/19 09:02 Dose: 1 spr Carvedilol (Coreg) 6.25 mg PO BID-[facility] Last Admin: 09/22/19 09:00 Dose: 6.25 mg Dextrose/Water (Dextrose 50%) 25 gm SLOW IVP PRN PRN PRN Reason: Hypoglycemia Docusate Sodium (Colace) 100 mg PO BIDPRN PRN PRN Reason: Constipation Last Admin: 09/22/19 09:02 Dose: 100 mg Enoxaparin Sodium (Lovenox) 40 mg SC DAILY [facility] Last Admin: 09/22/19 09:03 Dose: 40 mg Gabapentin (Neurontin) 300 mg PO BID [facility] Last Admin: 09/22/19 09:00 Dose: 300 mg Glucagon (Glucagon) 1 mg IM PRN PRN PRN Reason: Hypoglycemia Dextrose/Water (D5w) 1,000 mls @ 0 mls/hr IV .Q0M PRN PRN Reason: Hypoglycemia Meropenem 1 gm/ Device 50 mls @ 100 mls/hr IVPB Q8H [facility] Last Admin: 09/22/19 11:13 Dose: 50 mls Insulin Human Lispro (Humalog) 0 units SC .MILD SLIDING SCALE PRN PRN Reason: Mild Correctional Scale Last Admin: 09/18/19 05:55 Dose: 2 unit Insulin Human Lispro (Humalog) 0 units SC .BEDTIME SLIDING SC PRN PRN Reason: Bedtime Correctional Scale Levothyroxine Sodium (Synthroid) 75 mcg PO DAILY [facility] Last Admin: 09/22/19 09:00 Dose: 75 mcg Ondansetron HCl (Zofran) 4 mg IVP Q6H PRN PRN Reason: Nausea/Vomiting Pantoprazole Sodium (Protonix) 40 mg IVP DAILY [facility] Last Admin: 09/22/19 09:01 Dose: 40 mg Sacubitril/Valsartan (Entresto 24 Mg-26 Mg Tablet) 1 tab PO BID [facility] Last Admin: 09/22/19 09:00 Dose: 1 tab Sodium Chloride (Flush - Normal Saline) 10 ml IVF Q12HR [facility] Last Admin: 09/22/19 09:03 Dose: 10 ml Sodium Chloride (Flush - Normal Saline) 10 ml IVF PRN PRN PRN Reason: Saline Flush Last Admin: 09/21/19 02:15 Dose: 10 ml Vital Signs & Weight: Vital Signs Temp Pulse Resp BP Pulse Ox 09/22/19 11:10 98.1 F 65 18 126/62 96 09/22/19 07:55 97.8 F 67 16 134/63 96 09/22/19 06:53 93 L 09/22/19 03:28 98.4 F 70 20 127/59 L 93 L Admit Weight 166 lb 14.239 oz Weight 172 lb 4.8 oz - Labs Result Diagrams: 09/22/19 04:42 09/22/19 04:42 Troponin/CKMB CK-MB (CK-2) 7.5 ng/mL (0-6.6) H* 09/16/19 07:34 Troponin I 3.007 ng/mL (< 0.028) H* 09/16/19 07:34 - Assessment/Plan Assessment/Plan: 1. NSTEMI, likely type 2 [place] demand ischemia 2. UTI, sepsis 3. Altered mental status, improved. 4. Anemia, improved after blood transfusion 5. Hypotension, resolved. 6. Severe dilated cardiomyopathy PLAN: - Will start CHF medications as tolerated. - Tolerating Entresto and BB dose. - She is back to baseline and well oriented. She is interested in lifevest and AICD if needed. Will repeat echo today and it EF still reduced will order lifevest.
[2019-09-22] MEDS ORDERED: Tamsulosin HCl 0.4 MG CAP PO SCH (13:15)
[2019-09-22 13:25] VITALS: BMI 26.9
[2019-09-23] MEDS: MEROPENEM 1 GM/50 ML 1 GM in Premix Bag 1 BAG IVPB SCH ×3 (03:38→20:40)
[2019-09-23 05:02] LABS: ALT (SGPT) 50 U/L (8-55); AST (SGOT) 35 U/L (5-34); Albumin 2.4 g/dL (3.4-4.8); Alkaline Phosphatase 111 U/L (40-110); Anion Gap 11 mmol/L (10-20); BUN (Urea Nitrogen) 12 mg/dL (9.8-20.1); Bilirubin, Total 1.3 mg/dL (0.2-1.2); Calc. Creatinine Clearance 78 mL/min (70-130); Calcium 7.9 mg/dL (7.8-10.44); Carbon Dioxide 30 mmol/L (23-31); Chloride 98 mmol/L (98-107); Estimated GFR-MDRD 87; Globulin 2.4 g/dL (2.4-3.5); Glucose 102 mg/dL (83-110); Potassium 3.7 mmol/L (3.5-5.1); Protein, Total 4.8 g/dL (6.0-8.3); Sodium 135 mmol/L (136-145)
--- NOTE | 2019-09-23 06:23 | PDOC.FM ---
- Subjective Subjective: She is doing well. She has no complaints. Her back pain she says is doing better. She is participating with PT. - Objective MAR Reviewed: Yes Vital Signs & Weight: Vital Signs (12 hours) Temp Pulse Resp BP Pulse Ox 09/23/19 03:20 98.1 F 79 18 130/72 95 09/22/19 23:14 80 15 116/68 94 L 09/22/19 19:33 98.0 F 80 14 111/58 L 94 L Weight Admit Weight 75.7 kg Weight 78.154 kg Most Recent Monitor Data Heart Rate from ECG 77 NIBP 113/66 NIBP BP-Mean 81 Respiration from ECG 19 SpO2 98 I&O: 09/21/19 09/22/19 09/23/19 06:59 06:59 06:59 Intake Total 480 1540 1490 Output Total 108 2760 2725 Balance 372 1220 1236 Result Diagrams: 09/23/19 04:28 09/23/19 04:29 EKG Reviewed by me: Yes (SR with BBB in 70-100s) Phys Exam - Physical Examination Constitutional: NAD HEENT: PERRLA, sclera anicteric Neck: no nodes, supple Respiratory: no wheezing, no rales, no rhonchi, clear to auscultation bilateral Cardiovascular: RRR, no significant murmur Gastrointestinal: soft, non-tender, positive bowel sounds Musculoskeletal: no edema, pulses present Neurological: moves all 4 limbs Psychiatric: normal affect Skin: no rash, normal turgor Dx/Plan (1) Bacteremia Code(s): R78.81 - BACTEREMIA Status: Acute (2) Sepsis with acute hypoxic respiratory failure Code(s): A41.9 - SEPSIS, UNSPECIFIED ORGANISM; R65.20 - SEVERE SEPSIS WITHOUT SEPTIC SHOCK; J96.01 - ACUTE RESPIRATORY FAILURE WITH HYPOXIA Status: Acute (3) Sepsis secondary to UTI Code(s): A41.9 - SEPSIS, UNSPECIFIED ORGANISM; N39.0 - URINARY TRACT INFECTION, SITE NOT SPECIFIED Status: Acute (4) CHF (congestive heart failure) Code(s): I50.9 - HEART FAILURE, UNSPECIFIED Status: Acute Qualifiers: Heart failure chronicity: acute (5) LBBB (left bundle branch block) Code(s): I44.7 - LEFT BUNDLE-BRANCH BLOCK, UNSPECIFIED Status: Acute (6) NSTEMI (non-ST elevated myocardial infarction) Code(s): I21.4 - NON-ST ELEVATION (NSTEMI) MYOCARDIAL INFARCTION Status: Acute (7) Normocytic anemia Code(s): D64.9 - ANEMIA, UNSPECIFIED Status: Acute (8) Diabetes mellitus Code(s): E11.9 - TYPE 2 DIABETES MELLITUS WITHOUT COMPLICATIONS Status: Chronic (9) History of vertebral compression fracture Code(s): Z87.81 - PERSONAL HISTORY OF (HEALED) TRAUMATIC FRACTURE Status: Chronic (10) Hypertension Code(s): I10 - ESSENTIAL (PRIMARY) HYPERTENSION Status: Chronic (11) Acute encephalopathy Code(s): G93.40 - ENCEPHALOPATHY, UNSPECIFIED Status: Acute - Plan Plan: 84 yo F presented with fever & AMS; admitted for Hypotension 2/2 urosepsis, NSTEMI, possible new onset HF, encephalopathy likely related to prior diagnosis. COVID r/o. 1. Severe Sepsis 2/2 ESBL UTI with gram neg. Bacteremia * Finalized [place] UCx and Bcx. * Changed to Meropenem from Zosyn 09/18-09/19, Rocephin 09/14-09/18, & Vanc 09/15- * BPs improved, procal downtrending, clinically improving * ID consulted, appreciate recs. * Changed Abx to Meropenem and recommends 2 wks of Abx with PICC line placement 2. Anemia-Improving s/p 2 PRBC units * Hb 10.4, at goal 3. AHRF requiring supplemental O2- Resolved Non hypoxic on RA. * Likely from anemia in light of improvement. 4. Low BPs-resolved s/p PRBC AM cortisol 40 (adequate) * Pulm consulted, recs appreciated * Hold diuretics for now. Will continue to monitor. * Solucortef d/c yesterday 5.NSTEMI Lovenox for PPx * EKG: LBBB & LAD * Troponin down-trending * Cards on board, recs appreciated. 6. New onset CHFrEF Elevated BNP * TTE with EF 30-35% * Cards on board, recs appreciated. * Increased Carvedilol * Will likely continue on medical management due to bacteremia * Will start Entresto today * Life vest needs to be discussed with family * Repeat ECHO today 7. Encephalopathy likely 2/2 acute illness/dementia At baseline per . 8. Hyponatremia-Resolved. 9. Hypoalbuminemia- s/p albumin Likely from poor intake. * Ensure added, dietary on board. 10. Suspected dementia SLUMS score 6 * Brain CT with cerebral atrophy * Has f/u appt with neurologist outpatient 11. Physical deconditioning * PT set up * Pending hospital course may need rescreen. 12. Vertebral compression fx f/u appt with [place] neurosurgery * Resume calcitonin * Tylenol & gabapentin for pain control * Rx OP rheum f/u 13. Leukocytosis Still elevated at 17, but other inflamm makers downtrending * peripheral smear: pending * Currently on steroids 14. Urinary retention Continue voiding trial * Intermittent straight cath of needed * Work with PT/OT 15. Hx of tx of C.Diff No test results at rehab * Empirically treated with PO vanc for ~5days * One loose BM, if continues to have will obtain CDiff toxin analysis * No imodium 16. Hypokalemia- Resolved Diet: Regular Soft Mechanical with Ensure added and 1800 mL fluid restriction DVT PPx: Lovenox IVF: SL GI PPx: Protonix PCP: [facility] Dispo: Tele inpt for bacteremia. LOS > 48H. Continue IV Abx, will touch base with CM about placement and see what ECHO shows. Addendum - Attending - Attending Attestation Date/Time: 09/23/19 6113 I personally evaluated the patient and discussed the management with Dr. Mustafa. I agree with the History, Examination, Assessment and Plan documented above with any addition or exceptions noted below. Patient stable. Awaiting acceptance for SNF. Repeat Echo pending for further recs from cardiology regarding heart failure. Labs continue to improve with meropenem.
[2019-09-23 07:00] LABS: Band 13 % (5-11); Lymphocytes 14 % (21-51); MDiff Complete? YES; Mean Corpuscular HGB CONC 34.8 g/dL (32.0-36.0); Mean Platelet Volume 9.5 fL (7.4-10.4); Metamyelocyte 2 % (0-0); Monocytes 3 % (0-10); Myelocyte 3 % (0-0); Neutrophil 64 % (42-75); Platelet Count 226 thou/uL (130-400); Platelet Morphology Comment Appears Adequate; Polychromasia SLIGHT = 2-3 cells (100X) (0-2/hpf); RBC Distribution Width 17.8 % (11.5-14.5); Reactive Lymphocytes 1 % (0-10); Red Blood Cell (RBC) Count 3.71 mill/uL (4.20-5.40); White Blood Cell (WBC) Count 17.7 thou/uL (4.8-10.8)
[2019-09-23] MEDS: Gabapentin 300 MG CAP PO SCH ×2 (08:35→20:40)
[2019-09-23] MEDS: Tamsulosin HCl 0.4 MG CAP PO SCH (08:35)
[2019-09-23] MEDS: Carvedilol 6.25 MG TAB PO SCH ×2 (08:35→16:47)
[2019-09-23] MEDS: Levothyroxine Sodium 75 MCG TAB PO SCH (08:35)
[2019-09-23] MEDS: Atorvastatin Calcium 20 MG TAB PO SCH (08:35)
[2019-09-23] MEDS: Pantoprazole 40 MG VIAL IVP SCH (08:35)
[2019-09-23] MEDS: Enoxaparin Sodium 40 MG/0.4 ML SYRINGE SC SCH (08:36)
[2019-09-23] MEDS: Calcitonin,Salmon,Synthetic 200 Units 3.7 ML PUMP EA NARE SCH (08:36)
--- NOTE | 2019-09-23 12:43 | PDOC.PALCO ---
Palliative Care Consult - Consult Details Requesting Physician: Dr Lamb Reason for Consult: goals of care, family support - Pertinent HPI Patient is an 84 year old female who lives in an independent setting with her as primary caregiver. She has had home health services and assistance by a paid caregiver. Discharged 5 days prior to presentation to the emergency room. She had been at rehab for a T12 L1 compression FX from an unwitnessed fall. She had an onset of hypotension in the home setting with weakness and presented to the local [place] emergency room as she had no relieving factors to mitigate symptoms. Evaluation in the emergency room identified a NSTEMI and heart failure exacerbation, transferred to [facility] for further evaluation and admitted for medical management. - Pertinent PMH DM, HTN, Hypothyroid, recent T12 L1 compression - Social History Smoking Status: Never smoker Smoking: no tobacco exposure Alcohol Use: none Drug Use History: none Living Situation: - Medications MAR Reviewed: Yes - Allergies Allergies/Adverse Reactions: Allergies Allergy/AdvReac Type Severity Reaction Status Date / Time Sulfa (Sulfonamide Allergy Verified 09/16/19 03:56 Antibiotics) - Subjective Awake, denies pain at time of assessment. Weakness. Desires to return to the home setting with home health. - ROS Constitutional: alert, weakness Eyes: other (Denies visual disturbance) ENT: other (Denies throat irritation, congestion) Respiratory: other (denies cough or shortness of breath) Cardiology: edema Gastrointestinal: other (denies abdominal pain, nausea) Skin: bruising - Objective Vital Signs: Vital Signs - Most Recent Temp Pulse Resp BP Pulse Ox 98.1 F 75 14 118/64 95 09/23/19 11:10 09/23/19 11:10 09/23/19 11:10 09/23/19 11:10 09/23/19 11:10 Palliative Performance Scale: 40 - Advance Directives Medical Power of Compliance Representative Dealer: Patient "Doug" Specific Directives: Continues to wish for cardiac resuscitiaton,no intubation/ mechanical suppot - Physical Exam Constitutional: NAD, ill appearing HEENT: EOMI, moist MMs, sclera anicteric Respiratory: no wheezing, diminished lung sound Cardiovascular: RRR Gastrointestinal: soft, non-tender, positive bowel sounds Genitourinary: incontinent, urinary retention Musculoskeletal: pulses present, edema present, diffuse muscle atrophy Neurology: moves all 4 limbs Skin: cap refill <2 seconds, bruising, fragile, friable Psychiatric: A&O x 3, normal mood - Problem List (1) Physical debility Code(s): R53.81 - OTHER MALAISE Current Visit: Yes Status: Acute (2) Palliative care encounter Code(s): Z51.5 - ENCOUNTER FOR PALLIATIVE CARE Current Visit: Yes Status: Acute (3) CHF (congestive heart failure) Code(s): I50.9 - HEART FAILURE, UNSPECIFIED Current Visit: Yes Status: Acute Qualifiers: Heart failure chronicity: acute (4) NSTEMI (non-ST elevated myocardial infarction) Code(s): I21.4 - NON-ST ELEVATION (NSTEMI) MYOCARDIAL INFARCTION Current Visit : Yes Status: Acute (5) Diabetes mellitus Code(s): E11.9 - TYPE 2 DIABETES MELLITUS WITHOUT COMPLICATIONS Current Visit : Yes Status: Chronic (6) History of vertebral compression fracture Code(s): Z87.81 - PERSONAL HISTORY OF (HEALED) TRAUMATIC FRACTURE Current Visit: Yes Status: Chronic - Plan/Recommendations Plan: Palliative Care has been involved with patient. She is hopeful to return to the home setting, however was only home with home health 5 days prior to syncope/ uti and subsequent readmission to the hospital. Family/Daughter has requested to go to a skilled facility in [place] for abx and continued higher level of care to promote optimal function and success. Will continue to educate in relation to disease trajectory and multiple morbidities. Emotional support and Therapeutic listening. Please refer to Palliative Care notes in note section. [60] minutes spent on this encounter with >50% of the time in counseling and coordination of care. Thank you for this very appropriate consult.
--- NOTE | 2019-09-23 16:43 | PDOC.CPN ---
- Subjective Date: 09/23/19 Time: 16:42 Interval history: She is doing well. She denies chest pain. - Review of Systems General: denies: fever/chills, weight/appetite/sleep changes, night sweats, fatigue Respiratory: denies: cough, congestion, shortness of breath, exercise intolerance Cardiovascular: denies: chest pain, palpitation, edema, paroxysmal nocturnal dyspnea, orthopnea Gastrointestinal: denies: nausea, vomiting, diarrhea, constipation, abd pain, GI bleeding Musculoskeletal: denies: pain, tenderness, stiffness, swelling, arthritis/ arthralgias Neurological: denies: numbness, syncope, seizure, weakness - Objective Allergies/Adverse Reactions: Allergies Allergy/AdvReac Type Severity Reaction Status Date / Time Sulfa (Sulfonamide Allergy Verified 09/16/19 03:56 Antibiotics) Visit Medications: Current Medications Acetaminophen (Tylenol) 650 mg PO Q6H PRN PRN Reason: Pain Last Admin: 09/22/19 13:12 Dose: 650 mg Atorvastatin Calcium (Lipitor) 40 mg PO DAILY [facility] Last Admin: 09/23/19 08:35 Dose: 40 mg Calcitonin [place] (Miacalcin) 0 sprays EA NARE DAILY [facility] Last Admin: 09/23/19 08:36 Dose: 1 spr Carvedilol (Coreg) 6.25 mg PO BID-WM [facility] Last Admin: 09/23/19 08:35 Dose: 6.25 mg Dextrose/Water (Dextrose 50%) 25 gm SLOW IVP PRN PRN PRN Reason: Hypoglycemia Docusate Sodium (Colace) 100 mg PO BIDPRN PRN PRN Reason: Constipation Last Admin: 09/22/19 09:02 Dose: 100 mg Enoxaparin Sodium (Lovenox) 40 mg SC DAILY [facility] Last Admin: 09/23/19 08:36 Dose: 40 mg Gabapentin (Neurontin) 300 mg PO BID [facility] Last Admin: 09/23/19 08:35 Dose: 300 mg Glucagon (Glucagon) 1 mg IM PRN PRN PRN Reason: Hypoglycemia Dextrose/Water (D5w) 1,000 mls @ 0 mls/hr IV .Q0M PRN PRN Reason: Hypoglycemia Meropenem 1 gm/ Device 50 mls @ 100 mls/hr IVPB Q8H [facility] Last Admin: 09/23/19 12:34 Dose: 50 mls Insulin Human Lispro (Humalog) 0 units SC .MILD SLIDING SCALE PRN PRN Reason: Mild Correctional Scale Last Admin: 09/18/19 05:55 Dose: 2 unit Insulin Human Lispro (Humalog) 0 units SC .BEDTIME SLIDING SC PRN PRN Reason: Bedtime Correctional Scale Levothyroxine Sodium (Synthroid) 75 mcg PO DAILY [facility] Last Admin: 09/23/19 08:35 Dose: 75 mcg Ondansetron HCl (Zofran) 4 mg IVP Q6H PRN PRN Reason: Nausea/Vomiting Pantoprazole Sodium (Protonix) 40 mg IVP DAILY [facility] Last Admin: 09/23/19 08:35 Dose: 40 mg Sacubitril/Valsartan (Entresto 24 Mg-26 Mg Tablet) 1 tab PO BID [facility] Last Admin: 09/23/19 08:35 Dose: 1 tab Sodium Chloride (Flush - Normal Saline) 10 ml IVF Q12HR [facility] Last Admin: 09/23/19 08:36 Dose: 10 ml Sodium Chloride (Flush - Normal Saline) 10 ml IVF PRN PRN PRN Reason: Saline Flush Last Admin: 09/21/19 02:15 Dose: 10 ml Tamsulosin HCl (Flomax) 0.4 mg PO DAILY [facility] Last Admin: 09/23/19 08:35 Dose: 0.4 mg Vital Signs & Weight: Vital Signs Temp Pulse Pulse Pulse Resp BP BP 09/23/19 15:07 97.8 F 86 14 09/23/19 13:52 85 87 107/58 L 94/52 L 09/23/19 11:10 98.1 F 75 14 09/23/19 07:45 97.8 F 85 16 09/23/19 07:01 BP Pulse Ox 09/23/19 15:07 106/66 95 09/23/19 13:52 09/23/19 11:10 118/64 95 09/23/19 07:45 138/71 96 09/23/19 07:01 95 Admit Weight 166 lb 14.239 oz Weight 172 lb 4.8 oz - Physical Exam General: no apparent distress HEENT: normocephaly Neck: midline trachea Cardiac: regular rate and rhythm Lungs: normal breath sounds Neuro: grossly intact Abdomen: active bowel sounds Extremities: no edema Skin: clear Musculoskeletal: no pain - Labs Result Diagrams: 09/23/19 04:28 09/23/19 04:29 Troponin/CKMB CK-MB (CK-2) 7.5 ng/mL (0-6.6) H* 09/16/19 07:34 Troponin I 3.007 ng/mL (< 0.028) H* 09/16/19 07:34 - Telemetry Sinus rhythms and dysrhythmias: sinus rhythm - Assessment/Plan Assessment/Plan: 1. NSTEMI, likely type 2 SC demand ischemia 2. UTI, sepsis 3. Altered mental status, improved. 4. Anemia, improved after blood transfusion 5. Hypotension, resolved. 6. Severe dilated cardiomyopathy, suspect ischemic in nature. PLAN: - Continue current CHF meds - EF improved closer to 40%, will not need - Tolerating Entresto and BB dose. - EF improved at 40%, not candidate for AICD or lifevest at this time. - Plan to re evaluate in 1 month and will need LHC at that time if her and her family in agreement to do invasive procedures. - May discharge at any time on current doses from cardiac perspective.
[2019-09-24] MEDS: MEROPENEM 1 GM/50 ML 1 GM in Premix Bag 1 BAG IVPB SCH ×2 (04:49→12:35)
[2019-09-24 05:10] LABS: ALT (SGPT) 40 U/L (8-55); AST (SGOT) 28 U/L (5-34); Albumin 2.5 g/dL (3.4-4.8); Alkaline Phosphatase 107 U/L (40-110); Anion Gap 10 mmol/L (10-20); BUN (Urea Nitrogen) 11 mg/dL (9.8-20.1); Bilirubin, Total 1.7 mg/dL (0.2-1.2); Calc. Creatinine Clearance 83 mL/min (70-130); Calcium 8.1 mg/dL (7.8-10.44); Carbon Dioxide 29 mmol/L (23-31); Chloride 99 mmol/L (98-107); Estimated GFR-MDRD Greater than 90; Globulin 2.5 g/dL (2.4-3.5); Glucose 101 mg/dL (83-110); Potassium 3.7 mmol/L (3.5-5.1); Sodium 134 mmol/L (136-145)
--- NOTE | 2019-09-24 06:22 | PDOC.FM ---
- Subjective Subjective: She is doing well today. She complains of no pain. - Objective MAR Reviewed: Yes Vital Signs & Weight: Vital Signs (12 hours) Temp Pulse Resp BP Pulse Ox 09/24/19 03:25 97.8 F 90 18 145/72 H 98 09/23/19 20:36 98.0 F 84 15 115/63 96 Weight Admit Weight 75.7 kg Weight 78.154 kg Most Recent Monitor Data Heart Rate from ECG 77 NIBP 113/66 NIBP BP-Mean 81 Respiration from ECG 19 SpO2 98 I&O: 09/22/19 09/23/19 09/24/19 06:59 06:59 06:59 Intake Total 1540 1490 1780 Output Total 2760 2725 2300 Balance -1220 -1235 -520 Result Diagrams: 09/24/19 06:23 09/24/19 04:33 EKG Reviewed by me: Yes (SR 70-100s) Phys Exam - Physical Examination Constitutional: NAD HEENT: moist MMs, sclera anicteric Neck: no nodes, supple Respiratory: no wheezing, no rales, no rhonchi, clear to auscultation bilateral Cardiovascular: RRR, no significant murmur, no rub Gastrointestinal: soft, non-tender, positive bowel sounds Musculoskeletal: no edema, pulses present Neurological: normal sensation Psychiatric: normal affect Skin: no rash Dx/Plan (1) Bacteremia Code(s): R78.81 - BACTEREMIA Status: Acute (2) Sepsis with acute hypoxic respiratory failure Code(s): A41.9 - SEPSIS, UNSPECIFIED ORGANISM; R65.20 - SEVERE SEPSIS WITHOUT SEPTIC SHOCK; J96.01 - ACUTE RESPIRATORY FAILURE WITH HYPOXIA Status: Acute (3) Sepsis secondary to UTI Code(s): A41.9 - SEPSIS, UNSPECIFIED ORGANISM; N39.0 - URINARY TRACT INFECTION, SITE NOT SPECIFIED Status: Acute (4) CHF (congestive heart failure) Code(s): I50.9 - HEART FAILURE, UNSPECIFIED Status: Acute Qualifiers: Heart failure chronicity: acute (5) LBBB (left bundle branch block) Code(s): I44.7 - LEFT BUNDLE-BRANCH BLOCK, UNSPECIFIED Status: Acute (6) NSTEMI (non-ST elevated myocardial infarction) Code(s): I21.4 - NON-ST ELEVATION (NSTEMI) MYOCARDIAL INFARCTION Status: Acute (7) Normocytic anemia Code(s): D64.9 - ANEMIA, UNSPECIFIED Status: Acute (8) Diabetes mellitus Code(s): E11.9 - TYPE 2 DIABETES MELLITUS WITHOUT COMPLICATIONS Status: Chronic (9) History of vertebral compression fracture Code(s): Z87.81 - PERSONAL HISTORY OF (HEALED) TRAUMATIC FRACTURE Status: Chronic (10) Hypertension Code(s): I10 - ESSENTIAL (PRIMARY) HYPERTENSION Status: Chronic (11) Acute encephalopathy Code(s): G93.40 - ENCEPHALOPATHY, UNSPECIFIED Status: Acute - Plan Plan: 84 yo F presented with fever & AMS; admitted for Hypotension 2/2 urosepsis, NSTEMI, possible new onset HF, encephalopathy likely related to prior diagnosis. COVID r/o. 1. Severe Sepsis 2/2 ESBL UTI with gram neg. Bacteremia * Finalized [place] UCx and Bcx. * Changed to Meropenem from Zosyn 09/18-09/19, Rocephin 09/14-09/18, & Vanc 09/15- * BPs improved, procal downtrending, clinically improving * ID consulted, appreciate recs. * Changed Abx to Meropenem and recommends 2 wks of Abx with PICC line placement 2. Anemia-Improving s/p 2 PRBC units * Hb 10.4, at goal 3. AHRF requiring supplemental O2- Resolved Non hypoxic on RA. * Likely from anemia in light of improvement. 4. Low BPs-resolved s/p PRBC AM cortisol 40 (adequate) * Pulm consulted, recs appreciated * Hold diuretics for now. Will continue to monitor. * Solucortef d/c yesterday 5.NSTEMI Lovenox for PPx * EKG: LBBB & LAD * Troponin down-trending * Cards on board, recs appreciated. 6. New onset CHFrEF Elevated BNP * TTE with EF 30-35%, repeat EF 35-40% * Cards on board, recs appreciated. * Increased Carvedilol * Will likely continue on medical management due to bacteremia * Will start Entresto today * Life vest needs to be discussed with family * Repeat ECHO today 7. Encephalopathy likely 2/2 acute illness/dementia At baseline per . 8. Hyponatremia-Resolved. 9. Hypoalbuminemia- s/p albumin Likely from poor intake. * Ensure added, dietary on board. 10. Suspected dementia SLUMS score 6 * Brain CT with cerebral atrophy * Has f/u appt with neurologist outpatient 11. Physical deconditioning * PT set up * Pending hospital course may need rescreen. 12. Vertebral compression fx f/u appt with [facility] * Resume calcitonin * Tylenol & gabapentin for pain control * Rx OP rheum f/u 13. Leukocytosis Still elevated at 17, but other inflamm makers downtrending * peripheral smear: pending * Currently on steroids 14. Urinary retention Continue voiding trial * Intermittent straight cath of needed * Work with PT/OT 15. Hx of tx of C.Diff No test results at rehab * Empirically treated with PO vanc for ~5days * One loose BM, if continues to have will obtain CDiff toxin analysis * No imodium 16. Hypokalemia- Resolved Diet: Regular Soft Mechanical with Ensure added and 1800 mL fluid restriction DVT PPx: Lovenox IVF: SL GI PPx: Protonix PCP: OOT Dispo: Tele inpt for bacteremia. LOS > 48H. Awaiting placement. Addendum - Attending - Attending Attestation Date/Time: 09/24/19 2279 I personally evaluated the patient and discussed the management with Dr. Mustafa. I agree with the History, Examination, Assessment and Plan documented above with any addition or exceptions noted below. Patient stable. She has been accepted for SNF for usp abx. Discharge today.
[2019-09-24 07:39] LABS: Anisocytosis SLIGHT = 6-15 cells (100X) (0-5/hpf); Band 10 % (5-11); Eosinophils 1 % (0-10); Hemoglobin 11.8 g/dL (12.0-16.0); Lymphocytes 20 % (21-51); MDiff Complete? YES; Mean Corpuscular HGB CONC 35.7 g/dL (32.0-36.0); Mean Corpuscular Hemoglobin 35.4 pg (27.0-31.0); Mean Corpuscular Volume 98.9 fL (78.0-98.0); Mean Platelet Volume 9.6 fL (7.4-10.4); Metamyelocyte 2 % (0-0); Monocytes 7 % (0-10); Neutrophil 60 % (42-75); Platelet Clumps SLIGHT; Platelet Count 218 thou/uL (130-400); Platelet Morphology Comment Appears Adequate; Polychromasia SLIGHT = 2-3 cells (100X) (0-2/hpf); RBC Distribution Width 17.2 % (11.5-14.5); Red Blood Cell (RBC) Count 3.34 mill/uL (4.20-5.40); Toxic Granulation SLIGHT; White Blood Cell (WBC) Count 17.6 thou/uL (4.8-10.8)
[2019-09-24] MEDS: Carvedilol 6.25 MG TAB PO SCH ×2 (08:37→16:35)
[2019-09-24] MEDS: Atorvastatin Calcium 20 MG TAB PO SCH (08:37)
[2019-09-24] MEDS: Enoxaparin Sodium 40 MG/0.4 ML SYRINGE SC SCH (08:37)
[2019-09-24] MEDS: Levothyroxine Sodium 75 MCG TAB PO SCH (08:38)
[2019-09-24] MEDS: Tamsulosin HCl 0.4 MG CAP PO SCH (08:38)
[2019-09-24] MEDS: Gabapentin 300 MG CAP PO SCH (08:38)
[2019-09-24] MEDS: Calcitonin,Salmon,Synthetic 200 Units 3.7 ML PUMP EA NARE SCH (08:38)
[2019-09-24] MEDS: Pantoprazole 40 MG VIAL IVP SCH (08:38)
--- NOTE | 2019-09-24 11:43 | PDOC.CPN ---
- Subjective Date: 09/24/19 Time: 11:42 Interval history: No new issues. No chest pain. - Review of Systems General: denies: fever/chills, weight/appetite/sleep changes, night sweats, fatigue Respiratory: denies: cough, congestion, shortness of breath, exercise intolerance Cardiovascular: denies: chest pain, palpitation, edema, paroxysmal nocturnal dyspnea, orthopnea Gastrointestinal: denies: nausea, vomiting, diarrhea, constipation, abd pain, GI bleeding Musculoskeletal: denies: pain, tenderness, stiffness, swelling, arthritis/ arthralgias Neurological: denies: numbness, syncope, seizure, weakness - Objective Allergies/Adverse Reactions: Allergies Allergy/AdvReac Type Severity Reaction Status Date / Time Sulfa (Sulfonamide Allergy Verified 09/16/19 03:56 Antibiotics) Visit Medications: Current Medications Acetaminophen (Tylenol) 650 mg PO Q6H PRN PRN Reason: Pain Last Admin: 09/22/19 13:12 Dose: 650 mg Atorvastatin Calcium (Lipitor) 40 mg PO DAILY [facility] Last Admin: 09/24/19 08:37 Dose: 40 mg Calcitonin [place] (Miacalcin) 0 sprays EA NARE DAILY [facility] Last Admin: 09/24/19 08:38 Dose: 1 spr Carvedilol (Coreg) 6.25 mg PO BID-WM [facility] Last Admin: 09/24/19 08:37 Dose: 6.25 mg Dextrose/Water (Dextrose 50%) 25 gm SLOW IVP PRN PRN PRN Reason: Hypoglycemia Docusate Sodium (Colace) 100 mg PO BIDPRN PRN PRN Reason: Constipation Last Admin: 09/22/19 09:02 Dose: 100 mg Enoxaparin Sodium (Lovenox) 40 mg SC DAILY [facility] Last Admin: 09/24/19 08:37 Dose: 40 mg Gabapentin (Neurontin) 300 mg PO BID [facility] Last Admin: 09/24/19 08:38 Dose: 300 mg Glucagon (Glucagon) 1 mg IM PRN PRN PRN Reason: Hypoglycemia Dextrose/Water (D5w) 1,000 mls @ 0 mls/hr IV .Q0M PRN PRN Reason: Hypoglycemia Meropenem 1 gm/ Device 50 mls @ 100 mls/hr IVPB Q8H [facility] Last Admin: 09/24/19 04:49 Dose: 50 mls Insulin Human Lispro (Humalog) 0 units SC .MILD SLIDING SCALE PRN PRN Reason: Mild Correctional Scale Last Admin: 09/18/19 05:55 Dose: 2 unit Insulin Human Lispro (Humalog) 0 units SC .BEDTIME SLIDING SC PRN PRN Reason: Bedtime Correctional Scale Levothyroxine Sodium (Synthroid) 75 mcg PO DAILY [facility] Last Admin: 09/24/19 08:38 Dose: 75 mcg Ondansetron HCl (Zofran) 4 mg IVP Q6H PRN PRN Reason: Nausea/Vomiting Pantoprazole Sodium (Protonix) 40 mg IVP DAILY [facility] Last Admin: 09/24/19 08:38 Dose: 40 mg Sacubitril/Valsartan (Entresto 24 Mg-26 Mg Tablet) 1 tab PO BID [facility] Last Admin: 09/24/19 08:38 Dose: 1 tab Sodium Chloride (Flush - Normal Saline) 10 ml IVF Q12HR [facility] Last Admin: 09/24/19 08:38 Dose: 10 ml Sodium Chloride (Flush - Normal Saline) 10 ml IVF PRN PRN PRN Reason: Saline Flush Last Admin: 09/21/19 02:15 Dose: 10 ml Tamsulosin HCl (Flomax) 0.4 mg PO DAILY [facility] Last Admin: 09/24/19 08:38 Dose: 0.4 mg Vital Signs & Weight: Vital Signs Temp Pulse Resp BP Pulse Ox 09/24/19 07:50 98.2 F 85 16 133/70 96 09/24/19 03:25 97.8 F 90 18 145/72 H 98 Admit Weight 166 lb 14.239 oz Weight 161 lb 8 oz - Physical Exam General: alert & oriented x3 HEENT: mucus membranes moist Neck: supple neck Cardiac: regular rate and rhythm Lungs: normal breath sounds Neuro: grossly intact Abdomen: active bowel sounds Extremities: no edema Skin: clear Musculoskeletal: no pain - Labs Result Diagrams: 09/24/19 06:23 09/24/19 04:33 Troponin/CKMB CK-MB (CK-2) 7.5 ng/mL (0-6.6) H* 09/16/19 07:34 Troponin I 3.007 ng/mL (< 0.028) H* 09/16/19 07:34 - Telemetry Sinus rhythms and dysrhythmias: sinus rhythm - Assessment/Plan Assessment/Plan: 1. NSTEMI, likely type 2 SC demand ischemia 2. UTI, sepsis 3. Altered mental status, improved. 4. Anemia, improved after blood transfusion 5. Hypotension, resolved. 6. Severe dilated cardiomyopathy, suspect ischemic in nature. PLAN: - Continue current CHF meds - Tolerating current meds. - EF improved at 40%, not candidate for AICD or lifevest at this time. - Plan to re evaluate in 1 month and will need C at that time if her and her family in agreement to do invasive procedures. - May discharge at any time on current doses from cardiac perspective. - Follow up in 2-4 weeks in the office.
[2019-09-24 17:24] VITALS: BP 112/63; TEMP 98.1
--- NOTE | 2019-09-24 23:29 | EKG ---
Test Reason : Blood Pressure : / mmHG Vent. Rate : 075 BPM Atrial Rate : 075 BPM P-R Int : 156 ms QRS Dur : 130 ms QT Int : 460 ms P-R-T Axes : 059 -39 162 degrees QTc Int : 513 ms Sinus rhythm with Premature atrial complexes Left axis deviation Left bundle branch block Abnormal ECG When compared with ECG of 16-SEP-2019 03:40, Premature atrial complexes are now Present T wave inversion less evident in Anterolateral leads QT has shortened Confirmed by Moise CASTILLO ([id number]) on 09/24/2019 11:28:55 PM Referred By: TASHIA prater Confirmed By:Moise CASTILLO
--- NOTE | 2019-09-27 11:13 | DIS ---
DATE OF ADMISSION: 09/16/2019 DATE OF DISCHARGE: 09/24/2019 RESIDENT: Gilmar Mustafa MD ADMITTING ATTENDING: Travis Nguyen MD DISCHARGE ATTENDING: Abdias Duenas MD CONSULTS: * Pulmonology, Dr. Garcia. Antibiotics as per Infections Disease.Disposition as per primary care team. Pulmonology has nothing further to add. * Cardiology, Dr. Hamlin. Continue current CHF medications. Tolerating current medications. EF improved to 40%. Not a candidate for AICD or LifeVest. Re-evaluate in 1 month and will need a left heart catheterization. Follow up in 2 to 4 weeks in the office. PROCEDURES: * Brain CT on 09/15 shows no acute intercranial abnormality. * Chest x-ray 09/15 shows no evidence of acute cardiopulmonary process. * Echo 09/17 shows EF of 30% to 35%, hypokinetic motion of the basal anterior and inferior and apex wall in the left ventricle. Flow reversal noted. Left atrium mildly dilated. Moderate mitral regurg and severe tricuspid regurg. * Abdomen and pelvis CT on 09/19 showed no hydroureteronephrosis or nephrolithiasis, bilateral relatively symmetric perinephric stranding, likely secondary to chronic renal disease. Simple hepatic cyst. Mild bilateral pleural effusions. Diverticular disease without active inflammation. Mild presacral edema. Bartholin gland cyst adjacent to the right labia. * PICC line placed on 09/20. * Echo on 09/22 shows EF of 35% to 40% with apical hypokinesis, mild concentric left ventricular hypertrophy. Mild dilated left atrium. Mitral annular calcification. Moderate mitral regurg. AV sclerosis. Mild tricuspid regurg. Right ventricle pressure at 37. Mild pulmonic regurg. Small pericardial effusion without tamponade. PRIMARY DIAGNOSES: 1. Severe sepsis secondary to extended spectrum beta-lactamases urinary tract infection with gram-negative bacteremia. 2. Anemia, resolved. 3. Acute hypoxic respiratory failure, resolved. 4. Hypotension, resolved with 2 units of packed red blood cells. 5. Non-ST segment elevation myocardial infarction. 6. New onset congestive heart failure. 7. Encephalopathy, resolved. 8. Hyponatremia, resolved. 9. Hypoalbuminemia status post albumin, resolved. SECONDARY DIAGNOSES: 1. Dementia 2. Physical deconditioning 3. Vertebral compression fracture 4. Leukocytosis 5. Urinary retention 6. History of Clostridium difficile 7. Hypokalemia. DISCHARGE MEDICATIONS: Continue home medications of; 1. Atorvastatin 20 mg daily. 2. Calcitonin 1 spray alternate naris daily. 3. Levothyroxine 75 mcg daily. 4. Carvedilol 6.25 mg b.i.d. 5. Start tamsulosin 0.4 mg daily. 6. Entresto b.i.d. 7. Meropenem 1 g q.8 hours for a full 14-day course, started on 09/19. 8. Gabapentin 300 mg b.i.d. 9. Colace 100 mg b.i.d. p.r.n. for constipation. DISCONTINUED MEDICATIONS: 1. Vancomycin. 2. Rocephin. 3. Zosyn. HISTORY OF PRESENT ILLNESS: The patient is an 84-year-old female with past medicalhistory of diabetes, hypertension, and hyperthyroidism, transferred from [place],who presents for lethargy and decreased blood pressure. The patient is unable to give her own history due to altered mental status. Her daughter, Arielle Campbell was contacted by phone. She reports the patient was released from rehab five days ago on Friday, was currently at home with home health. She had been to rehab receiving PT/OT after she found to have a compression fracture of T12 and L1 from presumably an unwitnessed fall and was having difficulty walking. Per daughter, she was found to have UTI while there, was continued on oral vancomycin after discharge, which the daughter understood was for UTI . Daughter reports her mother had been mostly coherent A and O x2 at baseline, prior to yesterday. She had become sleepy and was having difficulty waking up. They tried to feed her yogurt and she was having difficulty swallowing, choking on her food. They checked in on her again at 6:30 p.m. and she has appeared spaced out. Over the course of 30 minutes, she became more sleepy, was dozing off and not as coherent. EMS was called and she was taken to hospital in [place]. Daughter reports the patient had a fever in [place]. At [place], UA showed positive leukocyte esterase, bacteria 3+, and white blood cells. She was diagnosed with sepsis secondary to UTI. She was given 3 L normal saline total and 2 g Rocephin. Other notable labs from [place] include white blood cell count of 29 and hemoglobin 8.1. Troponin of 4.3, CK of 4.2, and BNP of 1418. EKG showed sinus rhythm with left bundle branch block with widened QRS and nonspecific ST changes. The patient was transferred to [facility], where her blood pressure was found to be low initially systolic in the 70s to 80s/40s after her last liter of fluid. Her most recent MAP was 66. HOSPITAL COURSE: 1. Severe sepsis secondary to ESBL UTI with gram-negative bacteremia. [place] urine cultures and blood cultures showed ESBL sensitive to meropenem and Zosyn * Changed to meropenem from Zosyn. Zosyn was given from 09/18 to 09/19, Rocephin from 09/14 to 09/18, and vancomycin from 09/15 to 09/17. * Blood pressures improved prior to discharge. * ID consulted and appreciate recommendations, recommended meropenem two weeks of antibiotic with PICC placement. 2. Anemia, improving, status post 2 units of packed red blood cells. Hemoglobin 10.4 before discharge. 3. Acute hypoxic respiratory failure requiring supplemental O2 resolved Non-hypoxic on room air. 4. Pulmonary consulted. * Hold diuretics. * Solu-Cortef was given during admission, but discontinued. 5. NSTEMI. Lovenox for prophylaxis. * EKG shows left bundle branch block and LAD. * Troponin downtrending. * Cardiology on board, recommendation as above. 6. New onset heart failure. Elevated BNP. * Echo initially showed 30% to 35% EF. Repeat shows 35% to 40%. Cardiology's recommendation as above. 7. Encephalopathy secondary to acute illness versus dementia at baseline per . 8. Hyponatremia, resolved. 9. Hypoalbuminemia, status post albumin. * Likely from poor p.o. intake. * Ensure Enlive added b.i.d. 10. Suspected dementia. SLUMS score 6. * Brain CT as noted above. * Followup appointment with neurologist outpatient. 11. Physical deconditioning. Will go to a SNF for PT/OT. 12. Vertebral compression fracture. Follow with [facility]. * Resume calcitonin, Tylenol, and gabapentin for pain. * Outpatient Rheumatology followup needed. 13. Leukocytosis. White blood cell count 17, but other inflammatory markers downtrending. * Peripheral smear was negative, showed normochromic normocytic anemia. 14. Urinary retention. Continue voiding trial. * Intermittent straight catheterization. * Work with PT/OT. 15. History of C. diff. No test results at rehab. * Empirically treated with p.o. vancomycin for 5 days. * One loose bowel movement during hospital stay. * No imodium given. 16. Hypokalemia, resolved. DISCHARGE INSTRUCTIONS: 1. Location: [facility] at [facility]. 2. Activity: As tolerated. 3. Diet. Fluid restriction 1800 mL. Heart healthy, low-sodium diet with Ensure Enlive b.i.d. given. 4. Therapy: PT/OT. 5. Follow up with Dr. Whitley in [place], Dr. Mike Stevens in [place], [place], in [address] Hamlin in [address] Salas Baron in 7 days. Job ID: [id number]
== END 2019-09-24 18:40 | DRG 871 ==
LOC: ERS 01:53 → CCU 05:38 → IMCU/EMU 14:04 → 2NO 09-17 15:54
PROVIDERS: ADMIT Family Medicine; ATTEND Family Medicine
PROC: 30233N1 Transfusion of Nonautologous Red Blood Cells into Peripheral Vein, Percutaneous Approach (ICD-10-PCS; 2019-09-16)
PROC: 02HV33Z Insertion of Infusion Device into Superior Vena Cava, Percutaneous Approach (ICD-10-PCS; principal; 2019-09-21)
PROC: B548ZZA Ultrasonography of Superior Vena Cava, Guidance (ICD-10-PCS; 2019-09-21)
DX: A41.50 Gram-negative sepsis, unspecified (principal); L89.323 Pressure ulcer of left buttock, stage 3; L89.313 Pressure ulcer of right buttock, stage 3; I21.A1 Myocardial infarction type 2; J96.01 Acute respiratory failure with hypoxia; I50.23 Acute on chronic systolic (congestive) heart failure; N39.0 Urinary tract infection, site not specified; I42.0 Dilated cardiomyopathy; G93.40 Encephalopathy, unspecified; E87.1 Hypo-osmolality and hyponatremia; M48.50XA Collapsed vertebra, not elsewhere classified, site unspecified, initial encounter for fracture; E46 Unspecified protein-calorie malnutrition; Z20.828 Contact with and (suspected) exposure to other viral communicable diseases; I25.5 Ischemic cardiomyopathy; R65.20 Severe sepsis without septic shock; I44.7 Left bundle-branch block, unspecified; F03.90 Unspecified dementia, unspecified severity, without behavioral disturbance, psychotic disturbance, mood disturbance, and anxiety; R33.9 Retention of urine, unspecified; E83.51 Hypocalcemia; E03.9 Hypothyroidism, unspecified; E11.9 Type 2 diabetes mellitus without complications; H40.9 Unspecified glaucoma; H35.30 Unspecified macular degeneration; D64.9 Anemia, unspecified; I11.0 Hypertensive heart disease with heart failure; L89.891 Pressure ulcer of other site, stage 1; Z96.652 Presence of left artificial knee joint; E87.6 Hypokalemia; Z88.2 Allergy status to sulfonamides; Z79.899 Other long term (current) drug therapy; Z68.25 Body mass index [BMI] 25.0-25.9, adult
CPT/HCPCS: 36415; 36416; 36430; 36569; 70450; 71045; 74176; 80053; 80061; 80202; 82533; 82553; 82607; 82728; 82747; 82805; 83036; 83540; 83605; 83735; 83880; 83930; 84145; 84443; 84484; 85025; 85060; 85520; 86850; 86870; 86900; 86901; 87040; 87635; 93005; 93010; 93306; 93798; 96360; 96361; 96372; C1751; C9113; J0696; J1644; J1650; J1720; J2185; J2543; J3370; J3490; J7050; P9016; P9045; U0003